=== PATIENT | male | born 1985 | race Caucasian/White ===

== ENCOUNTER 2021-12-03 10:41 | Outpatient (REF) | payer OTHER, SELFPAY ==
[2021-12-03 13:41] LABS: MANUAL DIFF FLAG NO
[2021-12-03 13:49] LABS: Basophils Absolute Auto 0.1 X10*3/uL (0.0-0.2); Basophils Percent Auto 1.1 % (0-2); Eosinophils Absolute Auto 0.2 X10*3/uL (0.0-0.4); Eosinophils Percent Auto 2.5 % (0-4); Hematocrit 47.7 % (42.0-52.0); Hemoglobin 15.5 g/dl (14.0-18.0); Imm Gran Abs Auto 0.04 X10*3/uL (0.00-0.03); Imm Gran Pct Auto 0.4 % (0.0-0.4); Lymphocytes Absolute Auto 1.8 X10*3/uL (1.2-4.9); Lymphocytes Percent Auto 18.5 % (20-40); Mean Corpuscular HGB Conc 32.5 g/dl (31.0-36.0); Mean Corpuscular Hemoglobin 28.2 pg (27.0-33.0); Mean Corpuscular Volume 86.9 fL (80.0-98.0); Mean Platelet Volume 11.1 fL (9.4-12.4); Monocytes Absolute Auto 0.8 X10*3/uL (0.1-1.2); Monocytes Percent Auto 8.9 % (2-11); Neutrophils Absolute Auto 6.5 x10*3/uL (2.0-8.3); Neutrophils Percent Auto 68.6 % (45-73); Platelet Count 315 X10*3/uL (160-400); Red Blood Count 5.49 X10*6/uL (4.60-5.80); White Blood Count 9.5 X10*3/uL (4.8-10.8)
[2021-12-03 13:58] LABS: Alanine Aminotransferase 15 U/L (0-40); Anion Gap 14 (12-20); Aspartate Amino Transferase 15 U/L (5-37); Blood Urea Nitrogen 15 mg/dL (9-16); Carbon Dioxide 25 mmol/L (22-29); Chloride 107 mmol/L (96-108); Cholesterol 223 mg/dL; Estimated Glomerular Filt Rate > 60; Glucose Fasting 118 mg/dL (60-99); HDL Cholesterol 42 mg/dL; LDL Cholesterol Calculated 154 mg/dl; Potassium 4.5 mmol/L (3.3-5.1); Sodium 141 mmol/L (135-145); Triglycerides 136 mg/dL
== END 2021-12-03 10:42 | disposition home or self-care (01) ==
LOC: HO.HMGCLDS 10:41
PROVIDERS: PCP Internal Medicine; Visit Provider Internal Medicine
DX: Z00.00 Encounter for general adult medical examination without abnormal findings (principal); E66.9 Obesity, unspecified; E70.30 Albinism, unspecified
CPT/HCPCS: 36415; 80048; 80061; 84450; 84460; 85025

== ENCOUNTER 2023-04-08 13:10 | Outpatient (AMB) | payer BC, SELFPAY ==
--- NOTE | 2023-04-08 13:36 | A.OFFPC_ITS ---
Vital Signs 04/08/23 13:37 04/08/23 13:48 Height 5 ft 8 in 5 ft 8 in Weight 254 lb BMI 38.6 BP 128/80 Blood Pressure Location Rt brachial Position Sitting Pulse 82 Pulse Source Pulse Oximeter Pulse Oximetry (%) 97 Oxygen Delivery Method Room Air Intake Visit Reasons: Annual PE Intake Note: pt is here for annual exam Allergies No Known Allergies [No Known Allergies*] Allergy (Verified 04/08/23 14:20) Medication List - Last Reconciled 04/08/23 by Lashae Chow MD No Known Home Meds Tobacco use date assessed: 04/08/23 Dental Screening Dental Screen Date: 04/08/23 Did you have a dental visit in the last 12 months?: No Did you have a dental problem in the last 6 months where you did not have access to dental care?: No Was dental information given to patient?: No HPI Annual PE HPI Details 37-year-old male with Albinism, dyslipid emia, prediabetes and obesity here today for his physical exam. He has been feeling well, but has been come having frequent episodes of waking up 2 night and has difficulty going back to sleep, and complains of excessive daytime sleepiness. He has also been told that he snores a lot. [facility] Medical History (Updated 04/08/23 @ 14:33 by Lashae Chow MD) Frequent nocturnal awakening Snoring Excessive daytime sleepiness History of COVID-19 Impaired fasting glucose Dyslipidemia (high LDL; low HDL) Obesity (BMI 30-39.9) Albinism Hx of major depression Surgical History [place] teeth extracted Family History Paternal Grandfather Substance use disorder Father Diabetes mellitus Essential hypertension Dyslipidemia Paternal Grandmother Breast cancer Mother Macular degeneration Social History Housing: Apartment Alcohol intake: current Alcohol intake frequency: a few times a month Alcohol type: beer Patient Tobacco Use Status: Former Tobacco user Tobacco use type: Cigar e-Cigarette/Vaping Use: Never Used service: No Current occupational status: employed Cognitive needs: No Hearing needs: No Vision needs: No Questionnaire PHQ-9 Over the last 2 weeks, how often have you been bothered by any of the following problems? 1. Little interest or pleasure in doing things: not at all 2. Feeling down, depressed, or hopeless: not at all 3. Trouble falling or staying asleep, or sleeping too much: several days 4. Feeling tired or having little energy: several days 5. Poor appetite or overeating: not at all 6. Feeling bad about yourself - or that you are a failure or have let yourself or your family down: not at all 7. Trouble concentrating on things, such as reading the newspaper or watching television: not at all 8. Moving or speaking so slowly that other people could have noticed. Or the opposite - being so fidgety or restless that you have been moving around a lot more than usual: not at all 9. Thoughts that you would be better off or of hurting yourself in some way: not at all Total score: 2 Depression Screening Interpretation: Negative 96843 - PHQ-9 Billing: Yes Source: Developed by Drs. Sergio Jorge, Yoli Dumas, Billy Lee and colleagues, with an educational kelli from [employer]. Thrive Questionnaire Date Thrive assessed: 04/08/23 I am a: Patient What is your living situation today?: I have a steady place to live Within the past 12 months, did the food you bought not last and you didn't have the money to get more?: Never true Within the past 12 months, did you worry whether your food would run out before you got money to buy more?: Never true Do you have trouble paying for medicines?: No Do you have trouble getting transportation to medical appointments?: No Do you have trouble paying your heating and electricity bill?: No Do you have trouble taking care of your child, family member or friend?: No Do you have trouble with day-to-day activities such as bathing, preparing meals, shopping, managing finances, etc.?: No Are you currently unemployed and looking for a job?: No Are you interested in more education?: No Please select the resources that you would like help with: None Currently or been in a relationship where the following occur: no concerns reported TRINH-7 AMB Questionnaire TRINH-7 Date TRINH - 7 assessed: 04/08/23 Feeling nervous, anxious, or on edge: 0 = Not at all Not being able to stop or control worryin = Not at all Worrying too much about different things: 0 = Not at all Trouble relaxin = Not at all Being so restless that it is hard to sit still: 0 = Not at all Becoming easily annoyed or irritable: 0 = Not at all Feeling afraid as if something awful might happen: 0 = Not at all Total TRINH-7 score (0-4 normal; 5-9 mild; 10-14 moderate; 15-21 severe): 0 Source: Developed by Drs. Sergio Jorge, Yoli Dumas, Billy Lee and colleagues, with an educational kelli from [employer]. TRINH-7 Assessment Billing TRINH-7 Assessment Tool: TRINH-7 Assessment [address]80 [place] Sleepiness Scale Questions Sitting and reading: slight chance of dozing Watching TV: slight chance of dozing Sitting inactive in a theater, movie etc.: would never doze As a passenger in a car for an hour without break: would never doze Lying down in the afternoon when circumstances permit: would never doze Sitting and talking to someone: would never doze Sitting quietly after lunch without alcohol: slight chance of dozing In a car, while stopped for a few minutes in the traffic: would never doze ESS < 10: normal, ESS > 12: pathologic: 3 Review of Systems Const Denies body aches, Denies fatigue, Denies fever(s), Denies headache(s) and Denies weakness Eyes Reports blurry vision ENT Reports Normal hearing present, Denies dizziness, Denies headache(s), Denies nasal congestion, Denies nasal discharge and Denies sore throat Card Denies chest pain, Denies lightheadedness, Denies palpitations and Denies dyspnea Resp Denies chest congestion, Denies cough, Denies dyspnea and Denies wheezing GI Denies abdominal pain, Denies change in bowel habits and Denies heartburn Denies dysuria, Denies urinary frequency and Denies urinary urgency Musc Reports no additional complaints Skin/Breast Denies lesions and Denies rash Neuro Reports Normal hearing present, Denies dizziness, Denies headache(s) and Denies weakness Psych Reports no additional complaints Endo Denies fatigue, Denies polydipsia, Denies polyuria and Denies palpitations Amandeep/Lymph Denies easy bleeding and Denies easy bruising Aller/Immun Denies seasonal rhinorrhea and Denies wheezing Physical exam (Primary Care) Vital Signs: Last Vital Signs Pulse 82 04/08/23 13:48 BP 128/80 04/08/23 13:48 Pulse Ox 97 04/08/23 13:48 Oxygen Delivery Method Room Air 04/08/23 13:48 BMI result Body Mass Index 38.6 BMI Assessment/Plan discussion: High BMI High, discussed plan: lifestyle, weight reduction, dietary and physical activity Tobacco/Smoking Status: Tobacco use Status Tobacco use date assessed 04/08/23 04/08/23 13:38 Patient Tobacco Use Status Former Tobacco user 04/08/23 13:58 Tobacco use type Cigar 04/08/23 13:38 e-Cigarette/Vaping Use Never Used 04/08/23 13:38 PHQ-9: PHQ-9 Score PHQ-9: Total score 2 04/08/23 14:30 Depression Screening Interpretation: Negative Thrive Assessment: Date of Thrive Assessment Date Thrive assessed 04/08/23 04/08/23 13:38 Currently or been in a relationship where the following occur: no concerns reported Const Other: Obese, Alert oriented x3, no acute distress noted ambulatory with normal gait Orientation/consciousness: patient oriented x3 [facility] Head: Yes normocephalic and Yes atraumatic Ears: hearing grossly normal bilaterally, TM's normal bilaterally and EAC's normal General nose exam: Normal external nose present and No nasal discharge present Face and sinus: Yes face symmetric Mouth: Normal oral and palatal mucosa present, oropharynx normal and moist mucous membranes Eyes General: appearance normal, both eyes and all related structures Eyelids: Yes eyelids normal Conjunctivae: conjunctivae normal Pupils: Fixed pupils bilaterally EOM: EOMs intact bilaterally Neck Neck: Yes normal visual inspection, Yes full ROM, Yes no lymphadenopathy and Yes supple Resp Effort & Inspection: normal respiratory effort and able to speak in complete sentences Auscultation: clear to auscultation bilaterally Cardio Other: S1 and S2 present regular rate and rhythm GI Palpation (GI): Soft to palpation, nontender, no guarding and no masses Auscultation: normal bowel sounds General: Yes no CVA tenderness Male General Exam: Yes normal external exam Penis: normal penis and circumcised Meatus: meatus normal Scrotum: scrotum normal and no masses Back/Spine/Pelvis Back: no CVA tenderness and No back tenderness Skin General skin exam: no rashes or lesions noted Neuro General: patient oriented x3, gait normal, moves all extremities, Normal light touch and pain sensation, no focal motor deficits and CN's II-XI intact bilaterally Cranial nerves: Yes Normal hearing present Extrem General: Yes full ROM, Yes no joint enlargement, Yes no clubbing, cyanosis or edema, Yes no pedal edema, Yes no calf tenderness and Yes normal gait Psych Appearance: grossly normal and well kempt Mental Status: mental status grossly normal Speech and movement: Normal speech and movement present Affect: normal affect Attitude: cooperative Thought process: Normal thought process present Thought content: Normal thought content present Assessment and Plan Assessment & Plan (1) Annual visit for general adult medical examination with abnormal findings: Code(s): Z00.01 - Encounter for general adult medical examination with abnormal findings Plan: Appropriate labs ordered patient reminded to get them done. Continue with regular dental visit every 6 months and regular eye exams, at least every 2 years. Take adequate calcium in diet and vitamin-D 3 at 2000 IU per cap once a day, in addition to weight-bearing exercises to help maintain good muscle tone and weight control. Instructed to do self-testicular exam check for any mass. Reminded to get his COVID booster, flu shot, up-to-date with his Tdap. (2) Frequent nocturnal awakening: Code(s): G47.00 - Insomnia, unspecified Plan: Referred to sleep clinic for evaluation of possible obstructive sleep apnea (3) Excessive daytime sleepiness: Code(s): G47.19 - Other hypersomnia Plan: Referred to sleep clinic for evaluation of sleep apnea (4) Snoring: Code(s): R06.83 - Snoring Plan: Referred to sleep clinic for evaluation of sleep apnea (5) Obesity (BMI 30-39.9): Code(s): E66.9 - Obesity, unspecified Plan: Discussed need to increase activity and wt reduction. Recommended focusing on improving your health instead of dieting. : Eat Mediterranean diet, limit foods high in fat, sugar, and calories, eat slowly, pay attention to portion sizes, plan your meals ahead of time, start regular physical activity 150 minutes of moderate intensity exercise or 90 minutes/week of vigorous exercise and increase water intake. (6) Albinism: Code(s): E70.30 - Albinism, unspecified (7) Dyslipidemia (high LDL; low HDL): Code(s): E78.5 - Hyperlipidemia, unspecified Plan: Reminded patient to get his fasting lipid panel done, already ordered. stressed importance of following a low-cholesterol diet and regular exercise, at least 30 minutes 3 to 4 times a week. Advised patient to make healthy food c hoices, eat more fruits, vegetables, whole grains, wild caught fish and low-fat dairy. Limit amount of meat and fried or fatty food products, as well as processed foods and fast foods. (8) Impaired fasting glucose: Code(s): R73.01 - Impaired fasting glucose Plan: Your fasting blood sugars elevated above 100 mg/dL. Impaired glucose metabolism O2 at risk for developing diabetes mellitus type 2, as well as heart attack and stroke later on. Lifestyle changes at just weight loss, healthy eating habits, and regular exercise are important, and can prevent the progression to diabetes Orders: Referrals 2 Sleep Medicine Referral G47.00 - Insomnia, unspecified, G47.19 - Other hypersomnia, R06.83 - Snoring Coding Level of Care Code Est Pt Prev Care 18-39y([id number]) Diagnoses Annual visit for general adult medical examination with abnormal findings Z00.01 Frequent nocturnal awakening G47.00 Excessive daytime sleepiness G47.19 Snoring R06.83 Obesity (BMI 30-39.9) E66.9 Albinism E70.30 Dyslipidemia (high LDL; low HDL) E78.5 Impaired fasting glucose R73.01 Additional Codes TRINH-7 Assessment Billing - TRINH-7 Assessment Tool: TRINH-7 Assessment [id number] ([id number])
[2023-04-08 13:48] VITALS: BP 128/80; PULSE 82; O2SAT 97; BMI 38.6
== END 2023-04-08 14:41 | disposition home or self-care (01) ==
PROVIDERS: PCP Internal Medicine; Visit Provider Internal Medicine
DX: Z00.00 Encounter for general adult medical examination without abnormal findings (principal); E70.30 Albinism, unspecified; G47.00 Insomnia, unspecified; G47.19 Other hypersomnia; R06.83 Snoring; E66.9 Obesity, unspecified; E78.5 Hyperlipidemia, unspecified; R73.01 Impaired fasting glucose
CPT/HCPCS: 99395

== ENCOUNTER 2023-06-10 07:58 | Outpatient (AMB) | payer BC, SELFPAY ==
--- NOTE | 2023-06-10 08:02 | MHC.OFFVIS ---
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 Pt reports snoring, and disrupted sleep, frequent arousals, and non refreshing sleep with daytime sleepiness. 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 He has having difficulty falling asleep, and staying sleep sometimes, especially the day he works for [employer]. Sleep questionnaire: Have you ever been diagnosed with a sleep disorder? No. Have you ever had a sleep study in the past? No. Have you ever been treated for a sleep disorder? No. Do you take medications for a sleep disorder? No. Do you snore? Yes. Do you wake up gasping at night? No. Do you have episodes of apneas? Don't know. If yes, are they witnessed? Sleeps alone. Do you have episodes of nocturnal chest pain or dyspnea? No. Do you have difficulty initiating sleep? Sometimes. Do you have difficulty maintaining sleep? Yes, sometimes. Do you wake up tired? Yes. Do you have headaches upon awakening? No. Do you wake up with dry mouth or throat? No. Do you have GERD? No. Do you have nocturia? No. Do you have nocturnal leg cramps? Depending the day. Do you have symptoms of restless legs? No. Do you act out your dreams? No. Sleep hygiene questionnaire: What is your usual sleep routine? Usual bedtime is at 10 pm; Usual wake up time is at 6:30 am. Do you take naps? No. Is your sleep environment cool, dark, and quiet? Yes. Do you exercise? No. Do you take caffeine or other stimulants? Coffee in the morning. Do you use electronics in bed? No. What is your work schedule? 9-5 pm. Hypersomnolence questionnaire: Do you have daytime tiredness or fatigue? Yes. Do you easily fall asleep when inactive? No. Have you ever had episodes of sudden weakness? No. Have you ever had episodes of sudden weakness associated with strong emotions? No. PFSH Medical History (Updated 04/08/23 @ 14:33 by Lashae Chow MD) Frequent nocturnal awakening Snoring Excessive daytime sleepiness History of COVID-19 Impaired fasting glucose Dyslipidemia (high LDL; low HDL) Obesity (BMI 30-39.9) Albinism Hx of major depression Surgical History (Reviewed 04/08/23 @ 13:37 by Bam Morgan [facility] [address]) [place] teeth extracted Family History (Reviewed 04/08/23 @ 13:37 by Bam Morgan [facility]) Paternal Grandfather Substance use disorder Father Diabetes mellitus Essential hypertension Dyslipidemia Paternal Grandmother Breast cancer Mother Macular degeneration Social History (Updated 06/10/23 @ 08:08 by Sabrina Anderson [facility]) Housing: Apartment Alcohol intake: current Alcohol intake frequency: a few times a month Alcohol type: beer Patient Tobacco Use Status: Former Tobacco user Tobacco use type: Cigar e-Cigarette/Vaping Use: Never Used service: No Current occupational status: employed Cognitive needs: No Hearing needs: No Vision needs: No Review of Systems Const All systems reviewed & are unremarkable except as noted in HPI and below ENT Reports Normal hearing present Neuro Reports Normal hearing present Physical Exam Vital Signs: Last Vital Signs Pulse 87 06/10/23 08:08 BP 138/98 H 06/10/23 08:08 Pulse Ox 97 06/10/23 08:08 Oxygen Delivery Method Room Air 06/10/23 08:08 BMI result Body Mass Index 39.9 Const General: cooperative and tired appearing Nutritional Appearance: obese Orientation/consciousness: patient oriented x3 Resp Effort & Inspection: normal respiratory effort and able to speak in complete sentences Neuro General: patient oriented x3, gait normal and moves all extremities Cranial nerves: Yes Normal facial strength present, Yes Midline tongue present, Yes Symmetric palate elevation present, Yes Normal hearing present, Yes Ability to bilaterally rotate head present and Yes Ability to bilaterally elevate shoulders present Cognition (Neuro): normal cognition Gait exam (Neuro): Normal gait present Motor exam (neuro): 5/5 motor strength present throughout, Pronator motor function not present and no tremor noted Psych Appearance: grossly normal Mental Status: mental status grossly normal Speech and movement: Normal speech and movement present Affect: normal affect Attitude: cooperative Assessment & Plan Assessment & Plan (1) Snoring: Code(s): R06.83 - Snoring (2) Excessive daytime sleepiness: Code(s): G47.19 - Other hypersomnia (3) Frequent nocturnal awakening: Code(s): G47.00 - Insomnia, unspecified Plan Pt is advised to undergo home sleep study to assess for sleep apnea. Will f/u with pt after study to discuss results and appropriate treatment options. Pt to call with any worsening concerns or questions. Orders: Orders RT home sleep study Today G47.00 - Insomnia, unspecified, G47.19 - Other hypersomnia, R06.83 - Snoring Coding Level of Care Code New Pt Level 3 (62828) Diagnoses Snoring R06.83 Excessive daytime sleepiness G47.19 Frequent nocturnal awakening G47.00
[2023-06-10 08:08] VITALS: BP 138/98; PULSE 87; O2SAT 97; BMI 39.9
== END 2023-06-10 08:43 | disposition home or self-care (01) ==
PROVIDERS: PCP Internal Medicine; Visit Provider Nurse Practitioner Family
DX: R06.83 Snoring (principal); G47.19 Other hypersomnia; G47.00 Insomnia, unspecified
CPT/HCPCS: 99203

== ENCOUNTER → 2023-06-10 07:58 | Outpatient (BNVA) | payer BC, SELFPAY | PROVIDERS: PCP Internal Medicine; Visit Provider Nurse Practitioner Family ==

== ENCOUNTER 2024-04-13 09:54 | Outpatient (AMB) | payer BC, SELFPAY ==
--- NOTE | 2024-04-13 10:03 | AM.OFFWIN_ITS ---
Intake Vital Signs 04/13/24 10:05 Height 5 ft 8 in Weight 272 lb BMI 41.4 BP 132/90 H Blood Pressure Location Lt brachial Position Sitting Pulse 102 H Pulse Source Pulse Oximeter Pulse Oximetry (%) 98 Oxygen Delivery Method Room Air Intake Visit Reasons: EP-lt ankle pain Intake Note: Patient here for injury to left ankle at home while walking down steps. Patient Tobacco Use Status: Former Tobacco user Allergies No Known Allergies [No Known Allergies*] Allergy (Verified 04/13/24 10:05) Do you need a note to return to daycare/school/sports/work: No HPI HPI Comments History of Present Illness Details Patient is a 39-year-old male complaining left ankle pain for 2 days. He states he was walking down the stairs at his house and on the last step, it is an uneven threshold so it caused him to lose his balance and he twisted his left ankle outward. He states it was immediately painful and swelled up, he has been using ice to try to control the swelling and a compression bandage. He has also been taking Motrin but he states it was exquisitely painful last night while he was sleeping so he decided to come in today to have it evaluated. Is able to walk on it although he is limping. [facility] Medical History (Updated 04/13/24 @ 10:48 by Terese Henning PA-C) Frequent nocturnal awakening Snoring Excessive daytime sleepiness History of COVID-19 Impaired fasting glucose Dyslipidemia (high LDL; low HDL) Obesity (BMI 30-39.9) Albinism Hx of major depression Surgical History [place] teeth extracted Family History Paternal Grandfather Substance use disorder Father Diabetes mellitus Essential hypertension Dyslipidemia Paternal Grandmother Breast cancer Mother Macular degeneration Social History (Updated 06/10/23 @ 08:08 by Sabrina Anderson CMA) Housing: Apartment Alcohol intake: current Alcohol intake frequency: a few times a month Alcohol type: beer Patient Tobacco Use Status: Former Tobacco user Tobacco use type: Cigar e-Cigarette/Vaping Use: Never Used service: No Current occupational status: employed Cognitive needs: No Hearing needs: No Vision needs: No Review of Systems Const All systems reviewed & are unremarkable except as noted in HPI and below Physical Exam Vital Signs: Last Vital Signs Pulse 102 H 04/13/24 10:05 BP 132/90 H 04/13/24 10:05 Pulse Ox 98 04/13/24 10:05 Oxygen Delivery Method Room Air 04/13/24 10:05 BMI result Body Mass Index 41.4 Const General: cooperative, healthy appearing, comfortable and no acute distress Orientation/consciousness: patient oriented x3 Limitations: no limitations HEENT Head: Yes normal to inspection Resp Effort & Inspection: normal respiratory effort and able to speak in complete sentences Neuro General: patient oriented x3 Extrem Left lower extremity: ankle Details: swelling Details: laterally and anteriorly and normal ROM; no tenderness, no warmth, no abrasions, no lacerations, no ecchymosis and achilles tendon exam normal Assessment & Plan Assessment & Plan (1) Moderate left ankle sprain: Code(s): S93.402A - Sprain of unspecified ligament of left ankle, initial encounter Qualifiers: Encounter type: initial encounter Qualified Code(s): S93.402A - Sprain of unspecified ligament of left ankle, initial encounter Plan: [facility] Ankle Rules support no xray necessary. Due to mechanism of injury, likely just a sprain. Clay wrapped ankle for patient, recommended he use a leave around the clock for the next few days as well as icing as much as possible and resting. If no improvement in his symptoms over the next 2-3 weeks, he should f ollow up with his primary care doctor. Plan See above Coding Level of Care Code Est Pt Level 3 (47325) Diagnoses Moderate left ankle sprain, initial encounter S93.402A Encounter type: initial encounter
[2024-04-13 10:05] VITALS: BP 132/90; PULSE 102; O2SAT 98; BMI 41.4
== END 2024-04-13 11:06 | disposition home or self-care (01) ==
PROVIDERS: PCP Internal Medicine; Visit Provider Physician Assistant
DX: S93.402A Sprain of unspecified ligament of left ankle, initial encounter (principal)
CPT/HCPCS: 99213

== ENCOUNTER 2024-04-26 13:44 | Outpatient (AMB) | payer BC, SELFPAY ==
[2024-04-26 14:43] VITALS: BP 142/92; PULSE 89; O2SAT 98; BMI 41.4
--- NOTE | 2024-04-26 14:43 | MHC.PC.OV ---
Vital Signs 04/26/24 14:43 Height 5 ft 8 in Weight 272 lb BMI 41.4 BP 142/92 H Blood Pressure Location Lt brachial Position Sitting Pulse 89 Pulse Source Pulse Oximeter Pulse Oximetry (%) 98 Oxygen Delivery Method Room Air Intake Visit Reasons: PE Intake Note: Pt is here today for his PE Allergies No Known Allergies [No Known Allergies*] Allergy (Verified 04/26/24 15:08) Medication List - Last Reconciled 04/26/24 by Lashae Chow MD No Known Home Meds Tobacco use date assessed: 04/26/24 Dental Screening Dental Screen Date: 04/26/24 Did you have a dental visit in the last 12 months?: No Did you have a dental problem in the last 6 months where you did not have access to dental care?: No Was dental information given to patient?: No HPI PE HPI Details 39 year-old male with Albinism, dyslipidemia, prediabetes and obesity here today for his physical exam. Patient states that he has been feeling well, has not been having further problems with sleeping. He has been feeling well, but admits to not eating a healthy diet and has not been getting any regular exercise as he works full-time , and is also a full-time student. He smokes cigars, but mainly when with friends and not ready to quit at present time. [facility] Medical History (Updated 04/26/24 @ 15:19 by Lashae Chow MD) History of COVID-19 Impaired fasting glucose Dyslipidemia (high LDL; low HDL) Obesity (BMI 30-39.9) Albinism Hx of major depression Surgical History [place] teeth extracted Family History Paternal Grandfather Substance use disorder Father Diabetes mellitus Essential hypertension Dyslipidemia Paternal Grandmother Breast cancer Mother Macular degeneration Social History Housing: Apartment Alcohol intake: current Alcohol intake frequency: a few times a month Alcohol type: beer Patient Tobacco Use Status: Current someday Tobacco user Tobacco use type: Cigar Years Smoked: 15 years e-Cigarette/Vaping Use: Never Used service: No Current occupational status: employed Cognitive needs: No Hearing needs: No Vision needs: No Questionnaire PHQ-9 Over the last 2 weeks, how often have you been bothered by any of the following problems? 1. Little interest or pleasure in doing things: not at all 2. Feeling down, depressed, or hopeless: not at all 3. Trouble falling or staying asleep, or sleeping too much: not at all 4. Feeling tired or having little energy: several days 5. Poor appetite or overeating: not at all 6. Feeling bad about yourself - or that you are a failure or have let yourself or your family down: not at all 7. Trouble concentrating on things, such as reading the newspaper or watching television: not at all 8. Moving or speaking so slowly that other people could have noticed. Or the opposite - being so fidgety or restless that you have been moving around a lot more than usual: not at all 9. Thoughts that you would be better off or of hurting yourself in some way: not at all Total score: 1 Depression Screening Interpretation: Negative Depression Screening Done: Yes 12050 - PHQ-9 Billing: Yes Source: Developed by Drs. Sergio Jorge, Yoli Dumas, Billy Lee and colleagues, with an educational kelli from [employer]. Thrive Questionnaire Date Thrive assessed: 04/26/24 I am a: Patient What is your living situation today?: I have a steady place to live Within the past 12 months, did the food you bought not last and you didn't have the money to get more?: Never true Within the past 12 months, did you worry whether your food would run out before you got money to buy more?: Never true Do you have trouble paying for medicines?: No Do you have trouble getting transportation to medical appointments?: No Do you have trouble paying your heating and electricity bill?: No Do you have trouble taking care of your child, family member or friend?: No Do you have trouble with day-to-day activities such as bathing, preparing meals, shopping, managing finances, etc.?: No Are you interested in more education?: No Please select the resources that you would like help with: None Currently or been in a relationship where the following occur: No concerns reported THRIVE Score: 0 AUDIT C Alcohol Use Questionnaire (AUDIT-C) 1. How often do you have a drink containing alcohol?: 2-4 times a month 2. How many drinks containing alcohol do you have on a typical day when you are drinking?: 1 or 2 3. How often do you have six or more drinks on one occasion?: Less than monthly Total Score: 3 TRINH-7 AMB Questionnaire TRINH-7 Date TRINH - 7 assessed: 04/26/24 Feeling nervous, anxious, or on edge: 1 = Several days Not being able to stop or control worryin = Not at all Worrying too much about different things: 0 = Not at all Trouble relaxin = Several days Being so restless that it is hard to sit still: 0 = Not at all Becoming easily annoyed or irritable: 1 = Several days Feeling afraid as if something awful might happen: 0 = Not at all Total TRINH-7 score (0-4 normal; 5-9 mild; 10-14 moderate; 15-21 severe): 3 Source: Developed by Drs. Sergio Jorge, Yoli Dumas, Billy Lee and colleagues, with an educational kelli from [employer]. TRINH-7 Assessment Billing TRINH-7 Assessment Tool: TRINH-7 Assessment 59662 Review of Systems Const Denies body aches, Denies fatigue, Denies fever(s), Denies headache(s) and Denies weakness Eyes Details: [facility] eye care Reports blurry vision ENT Reports Normal hearing present, Denies dizziness, Denies headache(s), Denies nasal congestion, Denies nasal discharge and Denies sore throat Card Denies chest pain, Denies lightheadedness, Denies palpitations and Denies dyspnea Resp Denies chest congestion, Denies cough, Denies dyspnea and Denies wheezing GI Denies abdominal pain, Denies change in bowel habits and Denies heartburn Denies dysuria, Denies urinary frequency and Denies urinary urgency Musc Reports no additional complaints Skin/Breast Denies lesions and Denies rash Neuro Reports Normal hearing present, Denies dizziness, Denies headache(s) and Denies weakness Psych Reports no additional complaints Endo Denies fatigue, Denies polydipsia, Denies polyuria and Denies palpitations Amandeep/Lymph Denies easy bleeding and Denies easy bruising Aller/Immun Denies seasonal rhinorrhea and Denies wheezing Physical exam (Primary Care) Vital Signs: Last Vital Signs Pulse 89 04/26/24 14:43 BP 142/92 H 04/26/24 14:43 Pulse Ox 98 04/26/24 14:43 Oxygen Delivery Method Room Air 04/26/24 14:43 BMI result Body Mass Index 41.4 BMI Assessment/Plan discussion: High BMI High, discussed plan: lifestyle, weight reduction, dietary and physical activity Tobacco/Smoking Status: Tobacco use Status Tobacco use date assessed 04/26/24 04/26/24 14:47 Patient Tobacco Use Status Current someday Tobacco 04/26/24 15:23 Tobacco use type Cigar 04/26/24 15:23 e-Cigarette/Vaping Use Never Used 04/26/24 15:23 PHQ-9: PHQ-9 Score PHQ-9: Total score 1 04/26/24 15:19 Depression Screening Interpretation: Negative Thrive Assessment: Date of Thrive Assessment Date Thrive assessed 04/26/24 04/26/24 14:47 Currently or been in a relationship where the following occur: No concerns reported Const Other: Obese, Alert oriented x3, no acute distress noted ambulatory with normal gait Orientation/consciousness: patient oriented x3 HENPR Head: Yes normocephalic and Yes atraumatic Ears: hearing grossly normal bilaterally, TM's normal bilaterally and EAC's normal General nose exam: Normal external nose present and No nasal discharge present Face and sinus: Yes face symmetric Mouth: Normal oral and palatal mucosa present, oropharynx normal and moist mucous membranes Eyes General: appearance normal, both eyes and all related structures Eyelids: Yes eyelids normal Conjunctivae: conjunctivae normal Pupils: Fixed pupils bilaterally EOM: EOMs intact bilaterally Neck Neck: Yes normal visual inspection, Yes full ROM, Yes no lymphadenopathy and Yes supple Resp Effort & Inspection: normal respiratory effort and able to speak in complete sentences Auscultation: clear to auscultation bilaterally Cardio Other: S1 and S2 present regular rate and rhythm GI Palpation (GI): Soft to palpation, nontender, no guarding and no masses Auscultation: normal bowel sounds General: Yes no CVA tenderness Male General Exam: Yes normal external exam Penis: normal penis and circumcised Meatus: meatus normal Scrotum: scrotum normal and no masses Back/Spine/Pelvis Back: no CVA tenderness and No back tenderness Skin General skin exam: no rashes or lesions noted Neuro General: patient oriented x3, gait normal, moves all extremities, Normal light touch and pain sensation, no focal motor deficits and CN's II-XI intact bilaterally Cranial nerves: Yes Normal hearing present Extrem General: Yes full ROM, Yes no joint enlargement, Yes no clubbing, cyanosis or edema, Yes no pedal edema, Yes no calf tenderness and Yes normal gait Psych Appearance: grossly normal and well kempt Mental Status: mental status grossly normal Speech and movement: Normal speech and movement present Affect: normal affect Attitude: cooperative Thought process: Normal thought process present Thought content: Normal thought content present Assessment and Plan Assessment & Plan (1) Annual visit for general adult medical examination with abnormal findings: Code(s): Z00.01 - Encounter for general adult medical examination with abnormal findings Plan: Will check appropriate labs. Recommended dental visit every 6 months and regular eye exams, sees [facility] eye care. Take adequate calcium in diet and vitamin-D 3 at 2000 IU per cap once a day, in addition to weight-bearing exercises to help maintain good muscle tone and weight control. Instructed to do self testicular check for any mass. He is up-to-date with his Tdap, reminded to get his yearly flu shot and COVID booster. (2) Impaired fasting glucose: Code(s): R73.01 - Impaired fasting glucose Plan: Previous fasting glucose were was elevated, reinforced importance of following a low carb diet and getting regular exercise to prevent progression to diabetes mellitus (3) Obesity (BMI 30-39.9): Code(s): E66.9 - Obesity, unspecified Plan: Discussed need to increase activity and wt reduction. Recommended focusing on improving your health instead of dieting. : Eat Mediterranean diet, limit foods high in fat, sugar, and calories, eat slowly, pay attention to portion sizes, plan your meals ahead of time, start regular physical activity 150 minutes of moderate intensity exercise or 90 minutes/week of vigorous exercise and increase water intake. (4) Dyslipidemia (high LDL; low HDL): Code(s): E78.5 - Hyperlipidemia, unspecified Plan: Fasting lipid panel ordered today, reinforced importance of following low-cholesterol diet and getting regular exercise (5) Albinism: Code(s): E70.30 - Albinism, unspecified Plan: Advised to ne diligent with sunscreen use, reapply every 2 hours when outside. Will check vitamin-D (6) Advanced directives, counseling/discussion: Code(s): Z71.89 - Other specified counseling Plan: Initiated the conversation about Advanced Directives. Advanced Directives help patients prepare for current and future decisions about their medical treatment and place of care. Discussed with patient that it is a process where a patients current condition and prognosis are reviewed, their wishes for information regarding their illness are elicited, and likely medical dilemmas are presented and options discussed. Healthcare proxy form completed. The form can be amended as needed, reviewed yearly and make changes as needed Orders: Orders Lipid Panel 04/26/24 E66.9 - Obesity, unspecified, E70.30 - Albinism, unspecified, E78.5 - Hyperlipidemia, unspecified, R73.01 - Impaired fasting glucose Basic Metabolic Panel Fasting 04/26/24 E66.9 - Obesity, unspecified, E70.30 - Albinism, unspecified, E78.5 - Hyperlipidemia, unspecified, R73.01 - Impaired fasting glucose Vitamin D 25-OH Total 04/26/24 E66.9 - Obesity, unspecified, E70.30 - Albinism, unspecified, E78.5 - Hyperlipidemia, unspecified, R73.01 - Impaired fasting glucose Alanine Aminotransferase 04/26/24 E66.9 - Obesity, unspecified, E70.30 - Albinism, unspecified, E78.5 - Hyperlipidemia, unspecified, R73.01 - Impaired fasting glucose Aspartate Amino Transferase 04/26/24 E66.9 - Obesity, unspecified, E70.30 - Albinism, unspecified, E78.5 - Hyperlipidemia, unspecified, R73.01 - Impaired fasting glucose Coding Level of Care Code Est Pt Prev Care 18-39y(95418) Diagnoses Annual visit for general adult medical examination with abnormal findings Z00.01 Impaired fasting glucose R73.01 Obesity (BMI 30-39.9) E66.9 Dyslipidemia (high LDL; low HDL) E78.5 Albinism E70.30 Advanced directives, counseling/discussion Z71.89 Additional Codes TRINH-7 Assessment Billing - TRINH-7 Assessment Tool: TRINH-7 Assessment 85141 ([id number])
== END 2024-04-26 15:32 | disposition home or self-care (01) ==
PROVIDERS: PCP Internal Medicine; Visit Provider Internal Medicine
DX: Z00.00 Encounter for general adult medical examination without abnormal findings (principal); E70.30 Albinism, unspecified; Z68.41 Body mass index [BMI] 40.0-44.9, adult; E66.9 Obesity, unspecified; R73.01 Impaired fasting glucose; E78.5 Hyperlipidemia, unspecified; Z71.89 Other specified counseling

== ENCOUNTER → 2024-04-26 13:44 | Outpatient (BNVA) | payer BC, SELFPAY | PROVIDERS: PCP Internal Medicine; Visit Provider Internal Medicine | DX: Z00.00 Encounter for general adult medical examination without abnormal findings (principal); R73.01 Impaired fasting glucose; E66.9 Obesity, unspecified; Z68.41 Body mass index [BMI] 40.0-44.9, adult; E78.5 Hyperlipidemia, unspecified; E70.30 Albinism, unspecified; Z71.89 Other specified counseling | CPT/HCPCS: 96127 ==

== ENCOUNTER 2024-10-15 10:20 | Outpatient (REF) | payer BC, SELFPAY ==
--- NOTE | ~2024-10-15 | XR_ITS ---
EXAMINATION: XR ELBOW, LEFT CLINICAL INFORMATION: M25.422 - Effusion, left elbow COMPARISON: None available. TECHNIQUE: AP, lateral, and oblique views of the left elbow. FINDINGS: No acute cortical disruption or malalignment. No lytic or blastic lesions. No gross joint effusion. No metallic or radiopaque foreign body. No subcutaneous emphysema. XR/XR elbow LT min 3V IMPRESSION: Normal left elbow. Electronically signed by: Jose Soriano MD 10/15/2024 11:23 AM EDT
== END 2024-10-15 10:21 | disposition home or self-care (01) ==
LOC: HO.HMGCX 10:20
PROVIDERS: PCP Internal Medicine; Visit Provider Nurse Practitioner Family
DX: M25.422 Effusion, left elbow (principal)
CPT/HCPCS: 73080

== ENCOUNTER 2024-10-15 10:20 | Outpatient (AMB) | payer BC, SELFPAY ==
[2024-10-15 10:24] VITALS: BP 132/90; PULSE 97; TEMP 36.7; O2SAT 97; BMI 41.4
--- NOTE | 2024-10-15 10:24 | AM.OFFWIN_ITS ---
Intake Vital Signs 10/15/24 10:24 Height 5 ft 8 in Weight 272 lb BMI 41.4 BP 132/90 H Blood Pressure Location Lt brachial Position Sitting Pulse 97 Pulse Source Pulse Oximeter Temp 98.0 F Temp Source Oral Pulse Oximetry (%) 97 Intake Visit Reasons: EP pain on LT elbow Intake Note: pt is here for left elbow pain Patient Tobacco Use Status: Current someday Tobacco user Accompanied by: Self / Same As Patient Allergies No Known Allergies [No Known Allergies*] Allergy (Verified 10/15/24 10:24) Do you need a note to return to daycare/school/sports/work: No HPI HPI Comments History of Present Illness Details 39 y/o male patient who presents to the walk in clinic with c/o Left Elbow Pain, swelling and redness since Tuesday. Reports noticing swelling and pain Tuesday evening. Tuesday and Tuesday he was cleaning his Basement. Denies injury or trauma, but thinks he might have banged his Elbow against something while cleaning basement and not realizing what he did. Denies fevers, chills, nausea or vomiting. [facility] Medical History (Updated 10/15/24 @ 11:26 by Lea Diaz NP) Cellulitis of elbow Swelling of left elbow History of COVID-19 Impaired fasting glucose Dyslipidemia (high LDL; low HDL) Obesity (BMI 30-39.9) Albinism Hx of major depression Surgical History [place] teeth extracted Family History Paternal Grandfather Substance use disorder Father Diabetes mellitus Essential hypertension Dyslipidemia Paternal Grandmother Breast cancer Mother Macular degeneration Social History Housing: Apartment Alcohol intake: current Alcohol intake frequency: a few times a month Alcohol type: beer Patient Tobacco Use Status: Current someday Tobacco user Tobacco use type: Cigar Years Smoked: 15 years e-Cigarette/Vaping Use: Never Used service: No Current occupational status: employed Cognitive needs: No Hearing needs: No Vision needs: No Review of Systems Const All systems reviewed & are unremarkable except as noted in HPI and below Physical Exam Vital Signs: Last Vital Signs Temp 98.0 F 10/15/24 10:24 Pulse 97 10/15/24 10:24 BP 132/90 H 10/15/24 10:24 Pulse Ox 97 10/15/24 10:24 BMI result Body Mass Index 41.4 Const General: cooperative and no acute distress Nutritional Appearance: obese Orientation/consciousness: patient oriented x3 Neuro General: patient oriented x3, gait normal and moves all extremities Extrem Left upper extremity: elbow/forearm Details: tenderness Location: of the distal humerus and of the olecranon, swelling Location: of the olecranon (With swelling and warm to touch), normal ROM and warmth Location: of the olecranon bursa Psych Speech and movement: Normal speech and movement present Assessment & Plan Assessment & Plan (1) Swelling of left elbow: Code(s): M25.422 - Effusion, left elbow Plan: DDx's: Elbow Tendonitis vs Cellulitis vs Gout vs Muscle Strain/Sprain vs Septic Joint vs Insect Bite. Ordered Keflex treating cellulitis and Prednisone for Swelling and Gout Flare Wrapped Joint with Clay wrap, Rest joint and elevate. NSAIDs for pain relief. Ordered Xray Elbow to r/o Fracture. Orders: Orders XR elbow LT min 3V Today M25.422 - Effusion, left elbow Medications: New cephalexin 500 mg PO BID 14 caps 0RF 7 days L03.119 - Cellulitis of unspecified part of limb ibuprofen 800 mg PO Q8H 20 tabs 0RF M25.422 - Effusion, left elbow prednisone 40 mg (2 x 20 mg) PO DAILY 10 tabs 0RF 5 days M25.422 - Effusion, left elbow Coding Level of Care Code Est Pt Level 4 (33936) Diagnoses Swelling of left elbow M25.422 Time Spent (min) 20
== END 2024-10-15 11:46 | disposition home or self-care (01) ==
PROVIDERS: PCP Internal Medicine; Visit Provider Nurse Practitioner Family
DX: M25.422 Effusion, left elbow (principal)

== ENCOUNTER → 2024-10-15 11:12 | Outpatient (BNV) | payer BC, SELFPAY | PROVIDERS: PCP Internal Medicine; Visit Provider Radiology Diagnostic Radiology | DX: M25.422 Effusion, left elbow (principal) | CPT/HCPCS: 73080 ==

== ENCOUNTER 2024-10-25 09:19 | Outpatient (AMB) | payer BC, SELFPAY ==
[2024-10-25 09:54] VITALS: BP 136/80; PULSE 93; RESP 15; TEMP 37.1; O2SAT 96; BMI 42.7
--- NOTE | 2024-10-25 09:54 | A.OFFPC_ITS ---
Vital Signs 10/25/24 09:54 Height 5 ft 8 in Weight 281 lb BMI 42.7 BP 136/80 Blood Pressure Location Lt brachial Position Sitting Respiration 15 Pulse 93 Pulse Source Pulse Oximeter Temp 98.7 F Temp Source Oral Pulse Oximetry (%) 96 Oxygen Delivery Method Room Air Intake Visit Reasons: f/u WI no improvement Lt elbow pain Intake Note: Pt is here today to f/u WI regarding his Lt elbow pain Allergies No Known Allergies [No Known Allergies*] Allergy (Verified 10/25/24 10:27) Medication List - Last Reconciled 10/25/24 by Lashae Chow MD No Known Home Meds Tobacco use date assessed: 10/25/24 Dental Screening Dental Screen Date: 10/25/24 Did you have a dental visit in the last 12 months?: No Did you have a dental problem in the last 6 months where you did not have access to dental care?: No Was dental information given to patient?: Patient has dentist HPI f/u [place] no improvement Lt elbow pain HPI Details 39-year-old male here today for follow-u p regarding pain in his left elbow. Patient was seen at the walk-in clinic approximately 2 weeks ago with the same complaint. At that time he states that he was cleaning his apartment but does not remember hitting his elbow on anything he has been applying ice and taking a leave every now and then which has been helping X-ray of left elbow did not show any fracture, no malalignment, no subcutaneous emphysema. [facility] Medical History (Updated 10/25/24 @ 10:38 by Lashae Chow MD) Swelling of left elbow History of COVID-19 Impaired fasting glucose Dyslipidemia (high LDL; low HDL) Obesity (BMI 30-39.9) Albinism Hx of major depression Surgical History [place] teeth extracted Family History Paternal Grandfather Substance use disorder Father Diabetes mellitus Essential hypertension Dyslipidemia Paternal Grandmother Breast cancer Mother Macular degeneration Social History Housing: Apartment Alcohol intake: current Alcohol intake frequency: a few times a month Alcohol type: beer Patient Tobacco Use Status: Current someday Tobacco user Tobacco use type: Cigar Years Smoked: 15 years e-Cigarette/Vaping Use: Never Used service: No Current occupational status: employed Cognitive needs: No Hearing needs: No Vision needs: No Questionnaire PHQ-9 Over the last 2 weeks, how often have you been bothered by any of the following problems? 1. Little interest or pleasure in doing things: not at all 2. Feeling down, depressed, or hopeless: not at all 3. Trouble falling or staying asleep, or sleeping too much: not at all 4. Feeling tired or having little energy: several days 5. Poor appetite or overeating: several days 6. Feeling bad about yourself - or that you are a failure or have let yourself or your family down: not at all 7. Trouble concentrating on things, such as reading the newspaper or watching television: not at all 8. Moving or speaking so slowly that other people could have noticed. Or the opposite - being so fidgety or restless that you have been moving around a lot more than usual: not at all 9. Thoughts that you would be better off or of hurting yourself in some way: not at all Total score: 2 Depression Screening Interpretation: Negative Depression Screening Done: Yes 16196 - PHQ-9 Billing: Yes Source: Developed by Drs. Sergio Jorge, Yoli Dumas, Billy Lee and colleagues, with an educational kelli from [employer]. Thrive Questionnaire Date Thrive assessed: 10/23/24 I am a: Patient What is your living situation today?: I have a steady place to live Within the past 12 months, did the food you bought not last and you didn't have the money to get more?: Never true Within the past 12 months, did you worry whether your food would run out before you got money to buy more?: Never true Do you have trouble paying for medicines?: No Do you have trouble getting transportation to medical appointments?: No Do you have trouble paying your heating and electricity bill?: No Do you have trouble taking care of your child, family member or friend?: No Do you have trouble with day-to-day activities such as bathing, preparing meals, shopping, managing finances, etc.?: No Are you currently unemployed and looking for a job?: No Are you interested in more education?: No Please select the resources that you would like help with: None Currently or been in a relationship where the following occur: No concerns reported THRIVE Score: 0 AUDIT C Alcohol Use Questionnaire (AUDIT-C) 1. How often do you have a drink containing alcohol?: 2-4 times a month 2. How many drinks containing alcohol do you have on a typical day when you are drinking?: 3 or 4 3. How often do you have six or more drinks on one occasion?: Less than monthly Total Score: 4 TRINH-7 AMB Questionnaire TRINH-7 Date TRINH - 7 assessed: 10/25/24 Feeling nervous, anxious, or on edge: 0 = Not at all Not being able to stop or control worryin = Not at all Worrying too much about different things: 0 = Not at all Trouble relaxin = Several days Being so restless that it is hard to sit still: 0 = Not at all Becoming easily annoyed or irritable: 0 = Not at all Feeling afraid as if something awful might happen: 0 = Not at all Total TRINH-7 score (0-4 normal; 5-9 mild; 10-14 moderate; 15-21 severe): 1 Source: Developed by Drs. Sergio Jorge, Yoli Dumas, Billy Lee and colleagues, with an educational kelli from [employer]. TRINH-7 Assessment Billing TRINH-7 Assessment Tool: TRINH-7 Assessment 99167 Review of Systems Const All systems reviewed & are unremarkable except as noted in HPI and below Physical exam (Primary Care) Vital Signs: Last Vital Signs Temp 98.7 F 10/25/24 09:54 Pulse 93 10/25/24 09:54 Resp 15 10/25/24 09:54 BP 136/80 10/25/24 09:54 Pulse Ox 96 10/25/24 09:54 Oxygen Delivery Method Room Air 10/25/24 09:54 BMI result Body Mass Index 42.7 Tobacco/Smoking Status: Tobacco use Status Tobacco use date assessed 10/25/24 10/25/24 10:00 Patient Tobacco Use Status Current someday Tobacco 10/25/24 10:00 Tobacco use type Cigar 10/25/24 10:00 e-Cigarette/Vaping Use Never Used 10/25/24 10:00 PHQ-9: PHQ-9 Score PHQ-9: Total score 2 10/25/24 10:00 Depression Screening Interpretation: Negative Thrive Assessment: Date of Thrive Assessment Date Thrive assessed 10/23/24 10/25/24 10:00 Currently or been in a relationship where the following occur: No concerns reported Const Other: Alert oriented x3, no acute distress Nutritional Appearance: obese morbidly obese Extrem Other: Slight erythema noted on left elbow, slightly warm to touch, nontender to palpation, full range of motion noted of left elbow joint Coding Level of Care Code Est Pt Level 4 (17514) Diagnoses Olecranon bursitis of left elbow M70.22 Additional Codes TRINH-7 Assessment Billing - TRINH-7 Assessment Tool: TRINH-7 Assessment 78522 ([id number]) PHQ-9 - 64464 - PHQ-9 Billing: Yes ([id number]) Assessment & Plan Assessment & Plan (1) Olecranon bursitis of left elbow: Code(s): M70.22 - Olecranon bursitis, left elbow Plan: Continue application of ice for 15 minutes twice a day as needed, may continue taking a leave 1 tablet once a day for 7 days. Advised that if symptoms persists for more afterwards, will refer to orthopedics for further evaluation manage
== END 2024-10-25 10:41 | disposition home or self-care (01) ==
LOC: HO.HMCC 09:20
PROVIDERS: PCP Internal Medicine; Visit Provider Internal Medicine
DX: M70.22 Olecranon bursitis, left elbow (principal)

== ENCOUNTER → 2024-10-25 09:19 | Outpatient (BNVA) | payer BC, SELFPAY | PROVIDERS: PCP Internal Medicine; Visit Provider Internal Medicine | DX: M70.22 Olecranon bursitis, left elbow (principal) | CPT/HCPCS: 96127 ==

== ENCOUNTER 2024-11-28 08:10 | Outpatient (AMB) | payer BC, SELFPAY ==
[2024-11-28 08:27] VITALS: BP 146/98; PULSE 99; RESP 16; TEMP 36.3; O2SAT 97; BMI 42.9
--- NOTE | 2024-11-28 08:27 | A.OFFPC_ITS ---
Vital Signs 11/28/24 08:27 Height 5 ft 8 in Weight 282 lb BMI 42.9 BP 146/98 H Blood Pressure Location Lt brachial Position Sitting Respiration 16 Pulse 99 Pulse Source Pulse Oximeter Temp 97.4 F Temp Source Oral Pulse Oximetry (%) 97 Oxygen Delivery Method Room Air Intake Visit Reasons: Weight Loss Intake Note: Pt is here today to discuss weight loss options Allergies No Known Allergies [No Known Allergies*] Allergy (Verified 11/28/24 09:00) Medication List - Last Reconciled 11/28/24 by Lashae Chow MD olmesartan 5 mg PO DAILY Tobacco use date assessed: 11/28/24 Dental Screening Dental Screen Date: 11/28/24 Did you have a dental visit in the last 12 months?: No Did you have a dental problem in the last 6 months where you did not have access to dental care?: No Was dental information given to patient?: Patient has dentist HPI Weight Loss HPI Details - The patient is a 39-year-old male pres enting with concerns about weight management and elevated blood pressure. - Previous attempts at weight loss throu gh diet and exercise were effective when time permitted regular workouts. - Recently began a health-focused meal d [employer]TI[employer] service 2 weeks ago, with no immediate assessment of results. - Acknowledges family-related stress pos sibly influencing his blood pressure levels, linked to his sister's marital issues. - Previous lab results indicated prediab etes and high cholesterol, and current blood pressure is elevated, [facility] Medical History (Updated 11/28/24 @ 09:01 by Lashae Chow MD) Morbid obesity with BMI of 40.0-44.9, adult Essential hypertension Swelling of left elbow History of COVID-19 Impaired fasting glucose Dyslipidemia (high LDL; low HDL) Albinism Hx of major depression Surgical History [place] teeth extracted Family History Paternal Grandfather Substance use disorder Father Diabetes mellitus Essential hypertension Dyslipidemia Paternal Grandmother Breast cancer Mother Macular degeneration Social History Housing: Apartment Alcohol intake: current Alcohol intake frequency: a few times a month Alcohol type: beer Patient Tobacco Use Status: Current someday Tobacco user Tobacco use type: Cigar Years Smoked: 15 years e-Cigarette/Vaping Use: Never Used service: No Current occupational status: employed Cognitive needs: No Hearing needs: No Vision needs: No Questionnaire Thrive Questionnaire Date Thrive assessed: 10/23/24 I am a: Patient What is your living situation today?: I have a steady place to live Within the past 12 months, did the food you bought not last and you didn't have the money to get more?: Never true Within the past 12 months, did you worry whether your food would run out before you got money to buy more?: Never true Do you have trouble paying for medicines?: No Do you have trouble getting transportation to medical appointments?: No Do you have trouble paying your heating and electricity bill?: No Do you have trouble taking care of your child, family member or friend?: No Do you have trouble with day-to-day activities such as bathing, preparing meals, shopping, managing finances, etc.?: No Are you currently unemployed and looking for a job?: No Are you interested in more education?: No Please select the resources that you would like help with: None Currently or been in a relationship where the following occur: No concerns reported THRIVE Score: 0 AUDIT C Alcohol Use Questionnaire (AUDIT-C) 1. How often do you have a drink containing alcohol?: 2-4 times a month 2. How many drinks containing alcohol do you have on a typical day when you are drinking?: 3 or 4 3. How often do you have six or more drinks on one occasion?: Less than monthly Total Score: 4 TRINH-7 AMB Questionnaire TRINH-7 Date TRINH - 7 assessed: 10/25/24 Source: Developed by Drs. Sergio Jorge, Yoli Dumas, Billy Lee and colleagues, with an educational kelli from [employer]. Review of Systems Const Denies body aches, Denies fever(s), Denies headache(s) and Denies weakness Eyes Details: [facility] ENT Denies dizziness, Denies headache(s) and Denies nasal congestion Card Denies chest pain, Denies lightheadedness, Denies palpitations and Denies dyspnea Resp Denies cough, Denies dyspnea and Denies wheezing GI Denies abdominal pain, Denies change in bowel habits and Denies heartburn Denies dysuria, Denies urinary frequency and Denies urinary urgency Musc Reports no additional complaints Neuro Denies dizziness, Denies headache(s) and Denies weakness Psych Reports no additional complaints Endo Denies polydipsia, Denies polyuria and Denies palpitations Amandeep/Lymph Denies easy bleeding and Denies easy bruising Aller/Immun Denies seasonal rhinorrhea and Denies wheezing Physical exam (Primary Care) Vital Signs: Last Vital Signs Temp 97.4 F 11/28/24 08:27 Pulse 99 11/28/24 08:27 Resp 16 11/28/24 08:27 BP 146/98 H 11/28/24 08:27 Pulse Ox 97 11/28/24 08:27 Oxygen Delivery Method Room Air 11/28/24 08:27 BMI result Body Mass Index 42.9 Tobacco/Smoking Status: Tobacco use Status Tobacco use date assessed 11/28/24 11/28/24 08:28 Patient Tobacco Use Status Current someday Tobacco 11/28/24 08:28 Tobacco use type Cigar 11/28/24 08:28 e-Cigarette/Vaping Use Never Used 11/28/24 08:28 Thrive Assessment: Date of Thrive Assessment Date Thrive assessed 10/23/24 11/28/24 08:28 Currently or been in a relationship where the following occur: No concerns reported Const General: no acute distress and alert Orientation/consciousness: patient oriented x3 HENMT Head: Yes atraumatic Ears: external ears normal General nose exam: Normal external nose present Face and sinus: Yes face symmetric Mouth: moist mucous membranes Eyes General: appearance normal, both eyes and all related structures Neck Neck: Yes full ROM, Yes no lymphadenopathy and Yes supple Thyroid: Thyroid normal Resp Effort & Inspection: normal respiratory effort and able to speak in complete sentences Auscultation: clear to auscultation bilaterally Cardio Rate: regular rate Rhythm: regular rhythm Heart sounds: S1 normal heart sound present and S2 normal heart sound present GI Palpation (GI): Soft to palpation, nontender, no guarding and no masses Auscultation: normal bowel sounds Neuro General: patient oriented x3, gait normal, moves all extremities, Normal light touch and pain sensation, no focal motor deficits and CN's II-XI intact bilaterally Cognition (Neuro): normal cognition Gait exam (Neuro): Normal gait present Motor exam (neuro): 5/5 motor strength present throughout Extrem General: Yes normal to inspection, Yes full ROM, Yes no joint enlargement, Yes no pedal edema and Yes normal gait Psych Appearance: grossly normal and well kempt Mental Status: mental status grossly normal Speech and movement: Normal speech and movement present Affect: normal affect Attitude: cooperative Thought process: Normal thought process present Thought content: Normal thought content present Coding Level of Care Code Est Pt Level 4 (61713) Complex EM visit Add On G2211 Diagnoses Dyslipidemia (high LDL; low HDL) E78.5 Impaired fasting glucose R73.01 Essential hypertension I10 Morbid obesity with BMI of 40.0-44.9, adult E66.01; Z68.41 Assessment & Plan Assessment & Plan (1) Dyslipidemia (high LDL; low HDL): Code(s): E78.5 - Hyperlipidemia, unspecified Category: Medical Plan: Fasting lipid panel ordered, stressed importance of following a low-cholesterol diet and getting regular exercise, (2) Impaired fasting glucose: Code(s): R73.01 - Impaired fasting glucose Category: Medical Plan: Your previous fasting blood sugars were elevated above 100 mg/dL. Impaired glucose metabolism increases the risk for developing diabetes mellitus type 2, as well as heart attack and stroke later on. Lifestyle changes that promotes weight loss, healthy eating habits, and regular exercise are important, and can prevent the progression to diabetes (3) Essential hypertension: Code(s): I10 - Essential (primary) hypertension Category: Medical Plan: Started olmesartan 5 mg taken 1 tablet once a day in a.m., reinforced importance of following low-salt diet and getting regular exercise, will have him come back in 3 weeks after fasting labs done for blood pressure check (4) Morbid obesity with BMI of 40.0-44.9, adult: Code(s): E66.01 - Morbid (severe) obesity due to excess calories; Z68.41 - Body mass index [BMI] 40.0-44.9, adult Category: Medical Plan: Your BMI is above the ideal range. I deal BMI is between 18.5- 24. BMI is calculated from you height and weight. Weight gain happens when you taken more calories than you burn off. Discussed need to increase activity and weight reduction. Recommended focusing on improving health instead of dieting. Mediterranean diet is a healthy diet that helps, limit food high in fat, sugar, and calories. Eat slowly, pay attention to portion sizes, plan your meals ahead of time, start regular physical activity, at least 150 minutes of moderate intensity exercise, or 90 minutes per week of vigorous exercise. Keeping a food diary, tracking what you eat and your physical activity can help assess what improvements you can make. There are many health problems associated with being overweight/obese, so it is important to improve your diet and exercise. There are medications and surgical options available, but Lifestyle changes are the 1st step. Orders: Orders Comprehensive [place]. Panel Fast Today E66.9 - Obesity, unspecified, E78.5 - Hyperlipidemia, unspecified, I10 - Essential (primary) hypertension, R73.01 - Impaired fasting glucose Hemoglobin A1c Today E66.9 - Obesity, unspecified, E78.5 - Hyperlipidemia, unspecified, I10 - Essential (primary) hypertension, R73.01 - Impaired fasting glucose Lipid Panel Today E66.9 - Obesity, unspecified, E78.5 - Hyperlipidemia, unspecified, I10 - Essential (primary) hypertension, R73.01 - Impaired fasting glucose Medications: New olmesartan 5 mg PO DAILY 30 tabs 1RF
== END 2024-11-28 08:58 | disposition home or self-care (01) ==
LOC: HO.HMCC 08:11
PROVIDERS: PCP Internal Medicine; Visit Provider Internal Medicine
DX: E78.5 Hyperlipidemia, unspecified (principal); E66.01 Morbid (severe) obesity due to excess calories; Z68.41 Body mass index [BMI] 40.0-44.9, adult; R73.01 Impaired fasting glucose; I10 Essential (primary) hypertension

== ENCOUNTER → 2024-11-28 08:10 | Outpatient (BNVA) | payer BC, SELFPAY | PROVIDERS: PCP Internal Medicine; Visit Provider Internal Medicine | DX: Z13.89 Encounter for screening for other disorder (principal) ==

== ENCOUNTER 2024-12-01 07:41 | Outpatient (REF) | payer BC, SELFPAY ==
[2024-12-01 12:48] LABS: Estimated Average Glucose 123 mg/dL; Hemoglobin A1C 211.4177 umol/L; Hemoglobin A1c % 5.9 % (<6.0); Total Hemoglobin (HGBA1C) 5177.5998 umol/L
[2024-12-01 12:51] LABS: Alanine Aminotransferase 29 U/L (0-40); Albumin Level 4.4 g/dL (3.5-5.0); Anion Gap 12 (12-20); Aspartate Amino Transferase 33 U/L (5-37); Bilirubin Total 0.3 mg/dL (0.0-1.0); Blood Urea Nitrogen 13 mg/dL (9-16); Carbon Dioxide 28 mmol/L (22-29); Chloride 106 mmol/L (96-108); Cholesterol 218 mg/dL (<200); Estimated Glomerular Filt Rate > 60; Glucose Fasting 129 mg/dL (60-99); HDL Cholesterol 38 mg/dL (>40); LDL Cholesterol Calculated 126 mg/dL (<100); Potassium 4.7 mmol/L (3.3-5.1); Sodium 141 mmol/L (135-145); Total Protein 8.1 g/dL (6.5-8.0); Triglycerides 270 mg/dL (<150)
[2024-12-01 12:58] LABS: Vitamin D 25-OH Total 19.6 ng/mL (>30)
[2024-12-01 13:12] LABS: Alkaline Phosphatase 84 U/L (39-117)
== END 2024-12-01 07:42 | disposition home or self-care (01) ==
LOC: HO.HMGCLDS 07:41
PROVIDERS: PCP Internal Medicine; Visit Provider Internal Medicine
DX: E66.9 Obesity, unspecified (principal); E78.5 Hyperlipidemia, unspecified; I10 Essential (primary) hypertension; R73.01 Impaired fasting glucose; E70.30 Albinism, unspecified
CPT/HCPCS: 36415; 80053; 80061; 82306; 83036

== ENCOUNTER 2024-12-19 13:33 | Outpatient (AMB) | payer BC, SELFPAY ==
--- NOTE | 2024-12-19 13:40 | A.OFFPC_ITS ---
Vital Signs 12/19/24 13:45 Height 5 ft 8 in Weight 279 lb BMI 42.4 BP 132/88 Blood Pressure Location Rt brachial Position Sitting Respiration 14 Pulse 84 Pulse Source Pulse Oximeter Temp 98.0 F Temp Source Oral Pulse Oximetry (%) 97 Oxygen Delivery Method Room Air Intake Visit Reasons: 3 weeks ffup hypertension and discuss lab results Intake Note: Pt is here today for 3wks f/u HTN and to discuss lab results Allergies No Known Allergies [No Known Allergies*] Allergy (Verified 12/19/24 13:57) Medication List - Last Reconciled 12/19/24 by Lashae Chow MD olmesartan 5 mg PO DAILY Tobacco use date assessed: 12/19/24 Dental Screening Dental Screen Date: 12/19/24 Did you have a dental visit in the last 12 months?: No Did you have a dental problem in the last 6 months where you did not have access to dental care?: No Was dental information given to patient?: No HPI 3 weeks ffup hypertension and discuss lab results HPI Details 39-year-old male with history of hyperte nsion currently on olmesartan 5 mg once a day, here today for his follow-up. He has been taking his medicines as directed, compliant with trying to adhere to a low-salt low-cholesterol diet. Has been feeling well with no complaints at present time. Recent fasting labs showed fasting glucose at 129 mg/dL but hemoglobin A1c at 5.9%, elevated fasting triglycerides and LDL cholesterol and low vitamin-D level. His serum electrolytes and renal function are all within normal limits [facility] Medical History (Updated 12/19/24 @ 14:04 by Lashae Chow MD) Vitamin D deficiency Morbid obesity with BMI of 40.0-44.9, adult Essential hypertension Swelling of left elbow History of COVID-19 Impaired fasting glucose Dyslipidemia (high LDL; low HDL) Albinism Hx of major depression Surgical History [place] teeth extracted Family History Paternal Grandfather Substance use disorder Father Diabetes mellitus Essential hypertension Dyslipidemia Paternal Grandmother Breast cancer Mother Macular degeneration Social History Housing: Apartment Alcohol intake: current Alcohol intake frequency: a few times a month Alcohol type: beer Patient Tobacco Use Status: Current someday Tobacco user Tobacco use type: Cigar Years Smoked: 15 years e-Cigarette/Vaping Use: Never Used service: No Current occupational status: employed Cognitive needs: No Hearing needs: No Vision needs: No Questionnaire Thrive Questionnaire Date Thrive assessed: 10/23/24 I am a: Patient What is your living situation today?: I have a steady place to live Within the past 12 months, did the food you bought not last and you didn't have the money to get more?: Never true Within the past 12 months, did you worry whether your food would run out before you got money to buy more?: Never true Do you have trouble paying for medicines?: No Do you have trouble getting transportation to medical appointments?: No Do you have trouble paying your heating and electricity bill?: No Do you have trouble taking care of your child, family member or friend?: No Do you have trouble with day-to-day activities such as bathing, preparing meals, shopping, managing finances, etc.?: No Are you currently unemployed and looking for a job?: No Are you interested in more education?: No Please select the resources that you would like help with: None Currently or been in a relationship where the following occur: No concerns reported THRIVE Score: 0 TRINH-7 AMB Questionnaire TRINH-7 Date TRINH - 7 assessed: 10/25/24 Source: Developed by Drs. Sergio Jorge, Yoli Dumas, Billy Lee and colleagues, with an educational kelli from [employer] Review of Systems Const Denies body aches, Denies fever(s), Denies headache(s) and Denies weakness Eyes Details: [facility] ENT Denies dizziness, Denies headache(s) and Denies nasal congestion Card Denies chest pain, Denies lightheadedness, Denies palpitations and Denies dyspnea Resp Denies cough, Denies dyspnea and Denies wheezing GI Denies abdominal pain, Denies change in bowel habits and Denies heartburn Denies dysuria, Denies urinary frequency and Denies urinary urgency Musc Reports no additional complaints Neuro Denies dizziness, Denies headache(s) and Denies weakness Psych Reports no additional complaints Endo Denies polydipsia, Denies polyuria and Denies palpitations Amandeep/Lymph Denies easy bleeding and Denies easy bruising Aller/Immun Denies seasonal rhinorrhea and Denies wheezing Physical exam (Primary Care) Vital Signs: Last Vital Signs Temp 98.0 F 12/19/24 13:45 Pulse 84 12/19/24 13:45 Resp 14 12/19/24 13:45 BP 132/88 12/19/24 13:45 Pulse Ox 97 12/19/24 13:45 Oxygen Delivery Method Room Air 12/19/24 13:45 BMI result Body Mass Index 42.4 Tobacco/Smoking Status: Tobacco use Status Tobacco use date assessed 12/19/24 12/19/24 13:42 Patient Tobacco Use Status Current someday Tobacco 12/19/24 13:40 Tobacco use type Cigar 12/19/24 13:40 e-Cigarette/Vaping Use Never Used 12/19/24 13:40 Thrive Assessment: Date of Thrive Assessment Date Thrive assessed 10/23/24 12/19/24 13:40 Currently or been in a relationship where the following occur: No concerns reported Const General: no acute distress and alert Orientation/consciousness: patient oriented x3 HENMT Head: Yes atraumatic Ears: external ears normal General nose exam: Normal external nose present Face and sinus: Yes face symmetric Mouth: moist mucous membranes Eyes General: appearance normal, both eyes and all related structures Neck Neck: Yes full ROM, Yes no lymphadenopathy and Yes supple Thyroid: Thyroid normal Resp Effort & Inspection: normal respiratory effort and able to speak in complete sentences Auscultation: clear to auscultation bilaterally Cardio Rate: regular rate Rhythm: regular rhythm Heart sounds: S1 normal heart sound present and S2 normal heart sound present GI Palpation (GI): Soft to palpation, nontender, no guarding and no masses Auscultation: normal bowel sounds Back/Spine/Pelvis Back: No back tenderness Neuro General: patient oriented x3, gait normal, moves all extremities, Normal light touch and pain sensation, no focal motor deficits and CN's II-XI intact bilaterally Cognition (Neuro): normal cognition Gait exam (Neuro): Normal gait present Motor exam (neuro): 5/5 motor strength present throughout Extrem General: Yes normal to inspection, Yes full ROM, Yes no joint enlargement, Yes no pedal edema and Yes normal gait Psych Appearance: grossly normal and well kempt Mental Status: mental status grossly normal Speech and movement: Normal speech and movement present Affect: normal affect Attitude: cooperative Thought process: Normal thought process present Thought content: Normal thought content present Results Reviewed Results Reviewed: Name: Gabriel Palacios Age/Sex: 39/M : 1985 Unit#: [id number] Attend Dr: Lashae Chow MD Re12/01/24 Status: DEP REF Location: [facility] Disch: SPEC : [id number] MARK: 12/01/24 STATUS: COMP REQ : [id number] RECD: 12/01/[address]: Lashae Chow MD COMP: 12/01/24 ENTERED: 12/01/[address]: ORDERED: CMP Fast, Lipid Panel, Vitamin D 25-OH Test Result Flag Reference Sodium 141 135-145 mmol/L Potassium 4.7 3.3-5.1 mmol/L CL 106 96-108 mmol/L CO2 28 22-29 mmol/L Gap 12 12-20 BUN 13 9-16 mg/dL Creat 1.22 0.5-1.4 mg/dL eGFR > 60 Chronic Kidney Disease: Estimated GFR < 60 mL/min/1.73m2 Severe Kidney Disease: Estimated GFR < 15 mL/min/1.73m2 FBS 129 H 60-99 mg/dL A fasting glucose of 126 mg/dl or greater on more than one occasion is considered diagnostic of diabetes. CA 10.0 8.4-10.2 mg/dL Total Bili 0.3 0.0-1.0 mg/dL AST (GOT) 33 5-37 U/L ALT (GPT) 29 0-40 U/L Protein, Total 8.1 H 6.5-8.0 g/dL Alb 4.4 3.5-5.0 g/dL Triglyceride 270 H <150 mg/dL Slight Lipemia. Desirable Triglyceride: less than 150 mg/dL Borderline High Triglyceride 150-199 mg/dL High Triglyceride: 200-499 mg/dL Very High Triglyceride: greater than or equal to 5OO mg/dL Cholesterol 218 H <200 mg/dL Desirable Cholesterol: less than 200 mg/dL Borderline High Cholesterol: 200-239 mg/dL High Cholesterol: greater than 239 mg/dL LDL Calculated 126 H <100 mg/dL Desirable LDL: less than 100 mg/dL Near Optimal/Above Optimal LDL: 110-129 mg/dL Borderline High LDL: 130-159 mg/dL High LDL: 160-189 mg/dL Very High LDL: greater than or equal to 190 mg/dL HDL 38 L >40 mg/dL Desirable HDL: greater than 40 mg/dL Note: This HDL assay may give artificially low results in patients with liver disease. Alk Phos 84 39-117 U/L Vitamin D 25-OH 19.6 L >30 ng/mL Health Based Reference Values* < 20 ng/mL Deficient 20-30 ng/mL Insufficient > 30 ng/mL Sufficient Laboratory Tests 12/01/24 07:55 Estimat Average Glucose 123 Hemoglobin A1c % 5.9 Coding Level of Care Code Est Pt Level 4 (33776) Complex EM visit Add On G2211 Diagnoses Vitamin D deficiency E55.9 Dyslipidemia (high LDL; low HDL) E78.5 Impaired fasting glucose R73.01 Essential hypertension I10 Assessment & Plan Assessment & Plan (1) Vitamin D deficiency: Code(s): E55.9 - Vitamin D deficiency, unspecified Category: Medical Plan: Vitamin-D is in deficient as noted on recent labs done, started on vitamin D3 06401 units per capsule to take once a week for the next 3 months. Once finished taking the prescription, continue taking [id number] vitamin-D 3 at 2000 units daily (2) Dyslipidemia (high LDL; low HDL): Code(s): E78.5 - Hyperlipidemia, unspecified Category: Medical Plan: Reviewed recent fasting lipid profile with patient with elevated triglycerides and high normal LDL cholesterol . Continue adherence to low-cholesterol diet and regular exercise, at least 30 minutes 3 to 4 times a week. Advised patient to make healthy food choices, eat more fruits, vegetables, whole grains, wild caught fish and low-fat dairy. Limit amount of meat and fried or fatty food p roducts, as well as processed foods and fast foods. Follow-up scheduled with repeat fasting lipid panel in 5 months. (3) Impaired fasting glucose: Code(s): R73.01 - Impaired fasting glucose Category: Medical Plan: Your previous fasting blood sugars were elevated above 100 mg/dL. Impaired glucose metabolism increases the risk for developing diabetes mellitus type 2, as well as heart attack and stroke later on. Lifestyle changes that promotes weight loss, healthy eating habits, and regular exercise are important, and can prevent the progression to diabetes (4) Essential hypertension: Code(s): I10 - Essential (primary) hypertension Category: Medical Plan: Blood pressure at goal of less than 130/80. Continue with olmesartan 5 mg daily. Reinforced importance of following a low sodium diet, getting regular exercise, and lowering stress levels. Orders: Orders Hemoglobin A1c 05/25/25 E55.9 - Vitamin D deficiency, unspecified, I10 - Essential (primary) hypertension, R73.01 - Impaired fasting glucose, E78.5 - Hyperlipidemia, unspecified Lipid Panel 05/25/25 E55.9 - Vitamin D deficiency, unspecified, I10 - Essential (primary) hypertension, R73.01 - Impaired fasting glucose, E78.5 - Hyperlipidemia, unspecified Vitamin D 25-OH Total 05/25/25 E55.9 - Vitamin D deficiency, unspecified, I10 - Essential (primary) hypertension, R73.01 - Impaired fasting glucose, E78.5 - Hyperlipidemia, unspecified Aspartate Amino Transferase 05/25/25 E55.9 - Vitamin D deficiency, unspecified, I10 - Essential (primary) hypertension, R73.01 - Impaired fasting glucose, E78.5 - Hyperlipidemia, unspecified Alanine Aminotransferase 05/25/25 E55.9 - Vitamin D deficiency, unspecified, I10 - Essential (primary) hypertension, R73.01 - Impaired fasting glucose, E78.5 - Hyperlipidemia, unspecified Basic Metabolic Panel Fasting 05/25/25 E55.9 - Vitamin D deficiency, unspecified, I10 - Essential (primary) hypertension, R73.01 - Impaired fasting glucose, E78.5 - Hyperlipidemia, unspecified Medications: New cholecalciferol (vitamin D3) 1,250 mcg PO QWEEK 13 caps 0RF 3 months E55.9 - Vitamin D deficiency, unspecified Refilled olmesartan 5 mg PO DAILY 30 tabs 5RF
[2024-12-19 13:45] VITALS: BP 132/88; PULSE 84; RESP 14; TEMP 36.7; O2SAT 97; BMI 42.4
== END 2024-12-19 16:11 | disposition home or self-care (01) ==
LOC: HO.HMCC 13:37
PROVIDERS: PCP Internal Medicine; Visit Provider Internal Medicine
DX: E55.9 Vitamin D deficiency, unspecified (principal); E78.5 Hyperlipidemia, unspecified; R73.01 Impaired fasting glucose; I10 Essential (primary) hypertension

== ENCOUNTER → 2024-12-19 13:33 | Outpatient (BNVA) | payer BC, SELFPAY | PROVIDERS: PCP Internal Medicine; Visit Provider Internal Medicine | DX: Z13.89 Encounter for screening for other disorder (principal) ==

== ENCOUNTER 2025-01-29 13:38 | Outpatient (AMB) | payer OTHER, SELFPAY ==
[2025-01-29 13:42] VITALS: BP 120/72; PULSE 84; TEMP 37; O2SAT 98; BMI 42.3
--- NOTE | 2025-01-29 13:42 | MHC.OFFWIV ---
Intake Vital Signs 01/29/25 13:42 Height 5 ft 8 in Weight 278 lb BMI 42.3 BP 120/72 Blood Pressure Location Rt brachial Position Sitting Pulse 84 Pulse Source Pulse Oximeter Temp 98.6 F Temp Source Oral Pulse Oximetry (%) 98 Oxygen Delivery Method Room Air Intake Visit Reasons: EP lower back pain Intake Note: pt presents with low back pain 1.5 weeks, denies any injury Patient Tobacco Use Status: Current someday Tobacco user Allergies No Known Allergies (No Known Allergies*) Allergy (Verified 01/29/25 13:48) Do you need a note to return to daycare/school/sports/work: No HPI HPI Comments History of Present Illness Details History - The patient is a 39-year-old male presenting with lower back pain. - The back pain has been present for approximately a week and a half, localized to the lower back without radiation to the legs. - The patient work up with pain. - The patient denies any specific inciting event but notes prolonged sitting at a non-ergonomic workstation. - Pain is exacerbated by bending over and alleviated by Aleve and ibuprofen, which he takes regularly. - The patient reports significant discomfort transitioning from lying to sitting in the morning. - He denies trauma or fall. - He denies saddle anesthesia, numbness, tingling, incontinence, dysuria, hematuria, CP, SOB, n/v/d. Physical Exam General: cooperative, healthy appearing and comfortable, patient oriented x3 Head: Normal to inspection, normocephalic/atraumatic Effort & Inspection: Normal respiratory effort and able to speak in complete sentences. Cardiac: RRR, no M/R/G noted. Normal S1 and S2. Respiratory: Clear to auscultation bilaterally. No w/r/r noted. Back/spine: No CVA tenderness bilaterally. Cervical, thoracic and lumbar spine normal to inspection. Cervical ROM normal, no midline spinous tenderness noted. Thoracic ROM normal, lumbar ROM normal. No midline vertebral spinous tenderness noted. No step offs noted. No TTP of the thoracic or lumbar paraspinous or paravertebral muscles. DTR are 2+ on the lower extremities noted. Ambulates with a steady gait. Strength is 5/5 on the LE bilaterally. Extremities: Straight leg raise test negative on right; Straight leg raise test negative on left; motor strength normal 5/5 bilaterally. Neuro: Sensation intact. Patient was informed and verbally consented to the use of an ambient scribe for clinic note documentation during this visit. [facility] Medical History (Updated 12/19/24 @ 14:04 by Lashae Chow MD) Vitamin D deficiency Morbid obesity with BMI of 40.0-44.9, adult Essential hypertension Swelling of left elbow History of COVID-19 Impaired fasting glucose Dyslipidemia (high LDL; low HDL) Albinism Hx of major depression Surgical History [employer] teeth extracted Family History Paternal Grandfather Substance use disorder Father Diabetes mellitus Essential hypertension Dyslipidemia Paternal Grandmother Breast cancer Mother Macular degeneration Social History Housing: Apartment Alcohol intake: current Alcohol intake frequency: a few times a month Alcohol type: beer Patient Tobacco Use Status: Current someday Tobacco user Tobacco use type: Cigar Years Smoked: 15 years e-Cigarette/Vaping Use: Never Used service: No Current occupational status: employed Cognitive needs: No Hearing needs: No Vision needs: No Review of Systems Const All systems reviewed & are unremarkable except as noted in HPI and below Physical Exam Vital Signs: Last Vital Signs Temp 98.6 F 01/29/25 13:42 Pulse 84 01/29/25 13:42 BP 120/72 01/29/25 13:42 Pulse Ox 98 01/29/25 13:42 Oxygen Delivery Method Room Air 01/29/25 13:42 BMI result Body Mass Index 42.3 Assessment & Plan Assessment & Plan (1) Lower back pain: Code(s): M54.50 - Low back pain, unspecified Qualifiers: Chronicity: acute Back pain laterality: midline Sciatica presence: without sciatica Qualified Code(s): M54.50 - Low back pain, unspecified Plan Most likely strain vs arthritis vs spasm Plan - Rest, heat and/or ice to the area - Continue with NSAIDs such as Aleve and ibuprofen for pain management. - Prescribed a muscle relaxant to alleviate muscle tension. - Consider physical therapy if symptoms persist. Medications: New cyclobenzaprine 5 mg PO Q8H PRN 21 tabs 0RF Muscle Spasm 7 days Coding Level of Care Code Est Pt Level 3 (96168) Diagnoses Acute midline low back pain without sciatica M54.50 Chronicity: acute Back pain laterality: midline Sciatica presence: without sciatica
== END 2025-01-29 14:41 | disposition home or self-care (01) ==
PROVIDERS: PCP Internal Medicine; Visit Provider Physician Assistant Medical
DX: M54.50 Low back pain, unspecified (principal)

== ENCOUNTER 2025-02-18 11:00 | Outpatient (AMB) | payer OTHER, SELFPAY ==
[2025-02-18 12:02] VITALS: BP 136/90; PULSE 95; RESP 15; TEMP 36.8; O2SAT 97; BMI 42.3
--- NOTE | 2025-02-18 12:02 | A.OFFPC_ITS ---
Vital Signs 02/18/25 12:02 Height 5 ft 8 in Weight 278 lb BMI 42.3 BP 136/90 H Blood Pressure Location Lt brachial Position Sitting Respiration 15 Pulse 95 Pulse Source Pulse Oximeter Temp 98.3 F Temp Source Oral Pulse Oximetry (%) 97 Oxygen Delivery Method Room Air Intake Visit Reasons: Medication followup Intake Note: Pt is here today c/o allergic reaction to his b/p olmesatan: lips were swollen and red Allergies No Known Allergies (No Known Allergies*) Allergy (Verified 02/23/25 20:27) Medication List - Last Reconciled 02/18/25 by Lashae Chow MD amlodipine 5 mg PO DAILY cholecalciferol (vitamin D3) 1,250 mcg PO QWEEK 3 months Tobacco use date assessed: 02/18/25 Dental Screening Dental Screen Date: 02/18/25 Did you have a dental visit in the last 12 months?: Yes Did you have a dental problem in the last 6 months where you did not have access to dental care?: No Was dental information given to patient?: Patient has dentist HPI Medication followup HPI Details - The patient is a 39-year-old male with hypertension, here for follow-up after experiencing some side effects with olmesartan - Hypertension: Previously on Olmesartan , discontinued due to lip swelling with no accompanying shortness of breath, headache or lightheadedness or chest pain,resolved by takingBenadryl. - Blood pressure has fluctuated since st opping Olmesartan three days ago. - Weight management: Actively losing emily ght from 284 to 273 pounds through diet and exercise. - Considering Wegovy for weight loss but currently managing with lifestyle changes. [facility] Medical History (Updated 02/23/25 @ 20:27 by Lashae Chow MD) Vitamin D deficiency Morbid obesity with BMI of 40.0-44.9, adult Essential hypertension History of COVID-19 Impaired fasting glucose Dyslipidemia (high LDL; low HDL) Albinism Hx of major depression Surgical History [place] teeth extracted Family History Paternal Grandfather Substance use disorder Father Diabetes mellitus Essential hypertension Dyslipidemia Paternal Grandmother Breast cancer Mother Macular degeneration Social History Housing: Apartment Alcohol intake: current Alcohol intake frequency: a few times a month Alcohol type: beer Patient Tobacco Use Status: Current someday Tobacco user Tobacco use type: Cigar Years Smoked: 15 years e-Cigarette/Vaping Use: Never Used service: No Current occupational status: employed Cognitive needs: No Hearing needs: No Vision needs: No Questionnaire Thrive Questionnaire Date Thrive assessed: 10/23/24 I am a: Patient What is your living situation today?: I have a steady place to live Within the past 12 months, did the food you bought not last and you didn't have the money to get more?: Never true Within the past 12 months, did you worry whether your food would run out before you got money to buy more?: Never true Do you have trouble paying for medicines?: No Do you have trouble getting transportation to medical appointments?: No Do you have trouble paying your heating and electricity bill?: No Do you have trouble taking care of your child, family member or friend?: No Do you have trouble with day-to-day activities such as bathing, preparing meals, shopping, managing finances, etc.?: No Are you currently unemployed and looking for a job?: No Are you interested in more education?: No Please select the resources that you would like help with: None Currently or been in a relationship where the following occur: No concerns reported THRIVE Score: 0 TRINH-7 AMB Questionnaire TRINH-7 Date TRINH - 7 assessed: 10/25/24 Source: Developed by Drs. Sergio Jorge, Yoli Dumas, Billy Lee and colleagues, with an educational kelli from [employer]. Review of Systems Const All systems reviewed & are unremarkable except as noted in HPI and below Physical exam (Primary Care) Vital Signs: Last Vital Signs Temp 98.3 F 02/18/25 12:02 Pulse 95 02/18/25 12:02 Resp 15 02/18/25 12:02 BP 136/90 H 02/18/25 12:02 Pulse Ox 97 02/18/25 12:02 Oxygen Delivery Method Room Air 02/18/25 12:02 BMI result Body Mass Index 42.3 Tobacco/Smoking Status: Tobacco use Status Tobacco use date assessed 02/18/25 02/18/25 12:05 Patient Tobacco Use Status Current someday Tobacco 02/18/25 12:05 Tobacco use type Cigar 02/18/25 12:05 e-Cigarette/Vaping Use Never Used 02/18/25 12:05 Thrive Assessment: Date of Thrive Assessment Date Thrive assessed 10/23/24 02/18/25 12:05 Currently or been in a relationship where the following occur: No concerns reported Const General: no acute distress and alert Orientation/consciousness: patient oriented x3 HENMT Head: Yes atraumatic Ears: external ears normal General nose exam: Normal external nose present Face and sinus: Yes face symmetric Mouth: Normal oral and palatal mucosa present, lip normal, tongue normal, oropharynx normal and moist mucous membranes Eyes General: appearance normal, both eyes and all related structures Neck Neck: Yes full ROM, Yes no lymphadenopathy and Yes supple Thyroid: Thyroid normal Resp Effort & Inspection: normal respiratory effort and able to speak in complete sentences Auscultation: clear to auscultation bilaterally Cardio Rate: regular rate Rhythm: regular rhythm Heart sounds: S1 normal heart sound present and S2 normal heart sound present GI Palpation (GI): Soft to palpation, nontender, no guarding and no masses Auscultation: normal bowel sounds Back/Spine/Pelvis Back: No back tenderness Skin General skin exam: no rashes or lesions noted Neuro General: patient oriented x3, gait normal, moves all extremities, Normal light touch and pain sensation, no focal motor deficits and CN's II-XI intact bilaterally Cognition (Neuro): normal cognition Gait exam (Neuro): Normal gait present Motor exam (neuro): 5/5 motor strength present throughout Extrem General: Yes normal to inspection, Yes full ROM, Yes no joint enlargement, Yes no pedal edema and Yes normal gait Psych Appearance: grossly normal and well kempt Mental Status: mental status grossly normal Speech and movement: Normal speech and movement present Affect: normal affect Attitude: cooperative Thought process: Normal thought process present Thought content: Normal thought content present Coding Level of Care Code Est Pt Level 4 (03551) Diagnoses Essential hypertension I10 Assessment & Plan Assessment & Plan (1) Essential hypertension: Code(s): I10 - Essential (primary) hypertension Category: Medical Plan: Blood pressure goal less than 130/80. Olmesartan discontinued, patient started on amlodipine 5 mg once a day. Reinforced importance of following a low sodium diet, getting regular exercise, and lowering stress levels. Will have him come back in two weeks with nurse navigator to check blood pressure Medications: New amlodipine Take at night with supper 5 mg PO DAILY 30 tabs 0RF
== END 2025-02-18 12:40 | disposition home or self-care (01) ==
LOC: HO.HMCC 11:02
PROVIDERS: PCP Internal Medicine; Visit Provider Internal Medicine
DX: I10 Essential (primary) hypertension (principal)

== ENCOUNTER 2025-06-01 09:04 | Outpatient (REF) | payer OTHER, SELFPAY ==
[2025-06-01 12:00] LABS: Alanine Aminotransferase 17 U/L (0-40); Anion Gap 11 (12-20); Aspartate Amino Transferase 23 U/L (5-37); Blood Urea Nitrogen 12 mg/dL (9-16); Calcium 9.5 mg/dL (8.4-10.2); Carbon Dioxide 26 mmol/L (22-29); Chloride 109 mmol/L (96-108); Cholesterol 206 mg/dL (<200); Estimated Glomerular Filt Rate > 60; HDL Cholesterol 34 mg/dL (>40); Potassium 4.1 mmol/L (3.3-5.1); Sodium 142 mmol/L (135-145); Triglycerides 159 mg/dL (<150)
== END 2025-06-01 09:05 | disposition home or self-care (01) ==
LOC: HO.HMGCLDS 09:04
PROVIDERS: PCP Internal Medicine; Visit Provider Internal Medicine
DX: I10 Essential (primary) hypertension (principal); E55.9 Vitamin D deficiency, unspecified; R73.01 Impaired fasting glucose; E78.5 Hyperlipidemia, unspecified
CPT/HCPCS: 36415; 80048; 80061; 82306; 83036; 84450; 84460

== ENCOUNTER 2025-06-06 13:41 | Outpatient (AMB) | payer BC, SELFPAY ==
--- NOTE | 2025-06-06 14:36 | A.OFFPC_ITS ---
Vital Signs 06/06/25 14:37 Height 5 ft 8 in Weight 267 lb BMI 40.6 BP 114/70 Blood Pressure Location Lt brachial Position Sitting Respiration 16 Pulse 87 Pulse Source Pulse Oximeter Temp 97.8 F Temp Source Oral Pulse Oximetry (%) 97 Oxygen Delivery Method Room Air Intake Visit Reasons: Annual visit Intake Note: Pt is here today for his PE Allergies No Known Allergies (No Known Allergies*) Allergy (Verified 06/06/25 14:46) Medication List - Last Reconciled 06/06/25 by Lashae Chow MD blood pressure test kit-large ([employer] Blood Pressure Monitor-3 Series kit) As directed once a day Tobacco use date assessed: 06/06/25 Dental Screening Dental Screen Date: 06/06/25 Did you have a dental visit in the last 12 months?: No Did you have a dental problem in the last 6 months where you did not have access to dental care?: No Was dental information given to patient?: Patient has dentist HPI Annual visit HPI Details The patient is a 40-year-old male presenting for a physical exam The patient has a history of hypertension, which has resolved without medication since he lost 25 pounds. His weight loss was achieved through a diet plan using the [employer] meal delivery service. 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 Recent lab results show an A1c of 5.6% and an average blood sugar of 114 mg/dL, fasting glucose is elevated at 127 mg/dL. His triglycerides have significantly improved, decreasing from 270 to 159 mg/dL, although his LDL cholesterol has increased slightly. His medical history is notable for vitamin D deficiency, which has normalized with high-dose supplementation. He also has a history of psoriasis , and an old hairline fracture in an ankle that causes pain in cold weather. He denies any history of heartburn. He received the original COVID-19 vaccine in 2020 as a work requirement but currently declines the flu shot and further COVID vaccines. He is up to date with his tetanus vaccination. on [employer] meal plan, lost approximately 20 lb since starting the meal plan. Blood pressure has dropped to normal levels Declines flu and COVID vaccination, up-to-date with his Tdap [facility] Medical History Vitamin D deficiency Morbid obesity with BMI of 40.0-44.9, adult Essential hypertension History of COVID-19 Impaired fasting glucose Dyslipidemia (high LDL; low HDL) Albinism Hx of major depression Surgical History [facility] teeth extracted Family History Paternal Grandfather Substance use disorder Father Diabetes mellitus Essential hypertension Dyslipidemia Paternal Grandmother Breast cancer Mother Macular degeneration Social History Housing: Apartment Alcohol intake: current Alcohol intake frequency: a few times a month Alcohol type: beer Patient Tobacco Use Status: Current someday Tobacco user Tobacco use type: Cigar Years Smoked: 15 years e-Cigarette/Vaping Use: Never Used service: No Current occupational status: employed Cognitive needs: No Hearing needs: No Vision needs: No Questionnaire Thrive Questionnaire Date Thrive assessed: 10/23/24 I am a: Patient What is your living situation today?: I have a steady place to live Within the past 12 months, did the food you bought not last and you didn't have the money to get more?: Never true Within the past 12 months, did you worry whether your food would run out before you got money to buy more?: Never true Do you have trouble paying for medicines?: No Do you have trouble getting transportation to medical appointments?: No Do you have trouble paying your heating and electricity bill?: No Do you have trouble taking care of your child, family member or friend?: No Do you have trouble with day-to-day activities such as bathing, preparing meals, shopping, managing finances, etc.?: No Are you currently unemployed and looking for a job?: No Are you interested in more education?: No Please select the resources that you would like help with: None Currently or been in a relationship where the following occur: No concerns reported THRIVE Score: 0 AUDIT C Alcohol Use Questionnaire (AUDIT-C) 1. How often do you have a drink containing alcohol?: 2-4 times a month 2. How many drinks containing alcohol do you have on a typical day when you are drinking?: 1 or 2 3. How often do you have six or more drinks on one occasion?: Never Total Score: 2 TRINH-7 AMB Questionnaire TRINH-7 Date TRINH - 7 assessed: 10/25/24 Source: Developed by Drs. Sergio Jorge, Yoli Dumas, Billy Lee and colleagues, with an educational kelli from [employer]. Review of Systems Const All systems reviewed & are unremarkable except as noted in HPI and below Denies body aches, Denies fever(s), Denies headache(s) and Denies weakness Eyes Details: sees [facility] ENT Denies dizziness, Denies headache(s) and Denies nasal congestion Card Denies chest pain, Denies lightheadedness, Denies palpitations and Denies dyspnea Resp Denies cough, Denies dyspnea and Denies wheezing GI Denies abdominal pain, Denies change in bowel habits and Denies heartburn Denies dysuria, Denies urinary frequency and Denies urinary urgency Musc Reports no additional complaints Skin/Breast Denies rash Neuro Denies dizziness, Denies headache(s) and Denies weakness Psych Reports no additional complaints Endo Denies polydipsia, Denies polyuria and Denies palpitations Amandeep/Lymph Denies easy bleeding and Denies easy bruising Aller/Immun Denies seasonal rhinorrhea and Denies wheezing Physical exam (Primary Care) Vital Signs: Last Vital Signs Temp 97.8 F 06/06/25 14:37 Pulse 87 06/06/25 14:37 Resp 16 06/06/25 14:37 BP 114/70 06/06/25 14:37 Pulse Ox 97 06/06/25 14:37 Oxygen Delivery Method Room Air 06/06/25 14:37 BMI result Body Mass Index 40.6 Tobacco/Smoking Status: Tobacco use Status Tobacco use date assessed 06/06/25 06/06/25 14:41 Patient Tobacco Use Status Current someday Tobacco 06/06/25 14:41 Tobacco use type Cigar 06/06/25 14:41 e-Cigarette/Vaping Use Never Used 06/06/25 14:41 Thrive Assessment: Date of Thrive Assessment Date Thrive assessed 10/23/24 06/06/25 14:41 Currently or been in a relationship where the following occur: No concerns reported Const General: no acute distress and alert Orientation/consciousness: patient oriented x3 HENMT Head: Yes atraumatic Ears: external ears normal General nose exam: Normal external nose present Face and sinus: Yes face symmetric Mouth: Normal oral and palatal mucosa present, tongue normal, oropharynx normal and moist mucous membranes Eyes General: appearance normal, both eyes and all related structures Neck Neck: Yes full ROM, Yes no lymphadenopathy and Yes supple Thyroid: Thyroid normal Resp Effort & Inspection: normal respiratory effort and able to speak in complete sentences Auscultation: clear to auscultation bilaterally Cardio Rate: regular rate Rhythm: regular rhythm Heart sounds: S1 normal heart sound present and S2 normal heart sound present GI Palpation (GI): Soft to palpation, nontender, no guarding and no masses Auscultation: normal bowel sounds Back/Spine/Pelvis Back: No back tenderness Skin General skin exam: no rashes or lesions noted Neuro General: patient oriented x3, gait normal, moves all extremities, Normal light touch and pain sensation and no focal motor deficits Cognition (Neuro): normal cognition Gait exam (Neuro): Normal gait present Motor exam (neuro): 5/5 motor strength present throughout Extrem General: Yes normal to inspection, Yes full ROM, Yes no joint enlargement, Yes no pedal edema and Yes normal gait Psych Appearance: grossly normal and well kempt Mental Status: mental status grossly normal Speech and movement: Normal speech and movement present Affect: normal affect Results Reviewed Results Reviewed: Name: Gabriel Palacios Age/Sex: 40/M : 1985 Unit#: [id number] Attend Dr: Lashae Chow MD Re06/01/25 Status: DEP REF Location: [facility] Disch: SPEC : [id number] MARK: 06/01/25 STATUS: COMP REQ : [id number] RECD: 06/01/[address]: Lashae Chow MD COMP: 06/01/25 ENTERED: 06/01/[address]: ORDERED: Met Prof Fast, AST, ALT, Lipid Panel, Vitamin D 25-OH Test Result Flag Reference Sodium 142 135-145 mmol/L Potassium 4.1 3.3-5.1 mmol/L CL 109 H 96-108 mmol/L CO2 26 22-29 mmol/L Gap 11 L 12-20 BUN 12 9-16 mg/dL Creat 1.18 0.5-1.4 mg/dL eGFR > 60 Chronic Kidney Disease: Estimated GFR < 60 mL/min/1.73m2 Severe Kidney Disease: Estimated GFR < 15 mL/min/1.73m2 FBS 127 H 60-99 mg/dL A fasting glucose of 126 mg/dl or greater on more than one occasion is considered diagnostic of diabetes. CA 9.5 8.4-10.2 mg/dL AST (GOT) 23 5-37 U/L ALT (GPT) 17 0-40 U/L Triglyceride 159 H <150 mg/dL Desirable Triglyceride: less than 150 mg/dL Borderline High Triglyceride 150-199 mg/dL High Triglyceride: 200-499 mg/dL Very High Triglyceride: greater than or equal to 5OO mg/dL Cholesterol 206 H <200 mg/dL Desirable Cholesterol: less than 200 mg/dL Borderline High Cholesterol: 200-239 mg/dL High Cholesterol: greater than 239 mg/dL LDL Calculated 141 H <100 mg/dL Desirable LDL: less than 100 mg/dL Near Optimal/Above Optimal LDL: 110-129 mg/dL Borderline High LDL: 130-159 mg/dL High LDL: 160-189 mg/dL Very High LDL: greater than or equal to 190 mg/dL HDL 34 L >40 mg/dL Desirable HDL: greater than 40 mg/dL Note: This HDL assay may give artificially low results in patients with liver disease. Vitamin D 25-OH 56.9 >30 ng/mL Health Based Reference Values* < 20 ng/mL Deficient 20-30 ng/mL Insufficient > 30 ng/mL Sufficient Laboratory Tests 06/01/25 09:08 Estimat Average Glucose 114 Hemoglobin A1c % 5.6 Coding Level of Care Code Est Pt Prev Care [id number]([id number]) Diagnoses Essential hypertension I10 Impaired fasting glucose R73.01 Dyslipidemia (high LDL; low HDL) E78.5 Albinism E70.30 Morbid obesity with BMI of 40.0-44.9, adult E66.01; Z68.41 Vitamin D deficiency E55.9 Annual visit for general adult medical examination with abnormal findings Z00.01 Assessment & Plan Assessment & Plan (1) Essential hypertension: Code(s): I10 - Essential (primary) hypertension Category: Medical (2) Impaired fasting glucose: Code(s): R73.01 - Impaired fasting glucose Category: Medical (3) Dyslipidemia (high LDL; low HDL): Code(s): E78.5 - Hyperlipidemia, unspecified Category: Medical (4) Albinism: Code(s): E70.30 - Albinism, unspecified Category: Medical (5) Morbid obesity with BMI of 40.0-44.9, adult: Code(s): E66.01 - Morbid (severe) obesity due to excess calories; Z68.41 - Body mass index [BMI] 40.0-44.9, adult Category: Medical (6) Vitamin D deficiency: Code(s): E55.9 - Vitamin D deficiency, unspecified Category: Medical (7) Annual visit for general adult medical examination with abnormal findings: Code(s): Z00.01 - Encounter for general adult medical examination with abnormal findings Plan 1. Hypertension The patient's blood pressure is now controlled without medication, reading 114/-- mmHg, which is attributed to his 25-pound weight loss achieved through dietary changes. The plan is to maintain the current lifestyle modifications and continue to monitor his blood pressure. 2. Prediabetes The patient's A1c is 5.6%, but his fasting glucose is elevated at 127 mg/dL. The plan is to encourage the incorporation of regular exercise in addition to his current diet to improve glucose control. 3. Hypercholesterolemia While his triglycerides have significantly improved (from 270 to 159 mg/dL) due to diet, his LDL cholesterol remains high. The lack of exercise is a likely contributor to the elevated LDL. The plan is to continue his current diet, add exercise, and recheck his lipid panel in the spring. 4. Albinism Reinforced importance using sunscreen all the time 5. Morbid obesity Continue with adherence to healthy eating habits, currently using the [employer] meal plan, and encouraged to do regular moderate intensity exercise at least 30 minutes 3 to 4 times a week. 6. Vitamin D Deficiency (Resolved) The patient's vitamin D level is now normal following treatment with a high-dose supplement. Given his limited sun exposure, the plan is for him to continue taking an [id number] vitamin D supplement to maintain his level. 7. Annual Physical exam The patient will continue his diet plan and is advised to increase water intake and incorporate exercise. He is up-to-date on his tetanus vaccine but has declined the flu and updated COVID-19 vaccines. Patient was informed and verbally consented to the use of an ambient scribe for clinic note documentation during this visit.
[2025-06-06 14:37] VITALS: BP 114/70; PULSE 87; RESP 16; TEMP 36.6; O2SAT 97; BMI 40.6
== END 2025-06-06 15:05 | disposition home or self-care (01) ==
LOC: HO.HMCC 13:41
PROVIDERS: PCP Internal Medicine; Visit Provider Internal Medicine
DX: Z00.01 Encounter for general adult medical examination with abnormal findings (principal); I10 Essential (primary) hypertension; E66.01 Morbid (severe) obesity due to excess calories; Z68.41 Body mass index [BMI] 40.0-44.9, adult; R73.01 Impaired fasting glucose; E78.5 Hyperlipidemia, unspecified; E70.30 Albinism, unspecified; E55.9 Vitamin D deficiency, unspecified